=== PATIENT | female | born 1945 | race Caucasian/White ===

== ENCOUNTER → 2023-03-27 15:30 | Outpatient (REF) | payer MEDICARE, OTHER, SELFPAY | LOC: WDC 15:30 | PROVIDERS: ATTENDING PHYSICIAN Internal Medicine | DX: Z12.31 Encounter for screening mammogram for malignant neoplasm of breast (principal) | CPT/HCPCS: 77063; 77067 ==

== ENCOUNTER → 2023-04-11 13:18 | Outpatient (REF) | payer MEDICARE, OTHER, SELFPAY ==
[2023-04-11 15:02] LABS: PT 48.8 Sec (11.4-14.6)
== END ==
LOC: OLABWIL 13:18
PROVIDERS: ATTENDING PHYSICIAN Internal Medicine
DX: Z79.01 Long term (current) use of anticoagulants (principal)
CPT/HCPCS: 36415; 85610

== ENCOUNTER → 2023-04-25 14:24 | Outpatient (REF) | payer MEDICARE, OTHER, SELFPAY | LOC: RAD 14:24 | PROVIDERS: ATTENDING PHYSICIAN Nurse Practitioner Gerontology; FAMILY PHYSICIAN Internal Medicine | DX: H53.9 Unspecified visual disturbance (principal); H53.129 Transient visual loss, unspecified eye; I34.0 Nonrheumatic mitral (valve) insufficiency | CPT/HCPCS: 93880 ==

== ENCOUNTER → 2023-05-05 13:41 | Outpatient (REF) | payer MEDICARE, OTHER, SELFPAY | LOC: RAD 13:41 | PROVIDERS: ATTENDING PHYSICIAN Nurse Practitioner Family | DX: M25.511 Pain in right shoulder (principal); M25.552 Pain in left hip; M67.952 Unspecified disorder of synovium and tendon, left thigh | CPT/HCPCS: 72110; 73030; 73502 ==

== ENCOUNTER 2023-05-10 13:12 | Outpatient (RCR) | payer MEDICARE, OTHER, SELFPAY | END 2023-05-10 23:59 | disposition home or self-care (01) | LOC: RPT 13:12 | PROVIDERS: ATTENDING PHYSICIAN Orthopaedic Surgery; FAMILY PHYSICIAN Internal Medicine | DX: M70.62 Trochanteric bursitis, left hip (principal); S72.002D Fracture of unspecified part of neck of left femur, subsequent encounter for closed fracture with routine healing; Z73.6 Limitation of activities due to disability; R26.89 Other abnormalities of gait and mobility | CPT/HCPCS: 97010; 97110; 97140; 97162 ==

== ENCOUNTER → 2023-05-26 13:19 | Outpatient (REF) | payer MEDICARE, OTHER, SELFPAY | LOC: PAVMRI 13:19 | PROVIDERS: ATTENDING PHYSICIAN Orthopaedic Surgery; FAMILY PHYSICIAN Internal Medicine | DX: M76.892 Other specified enthesopathies of left lower limb, excluding foot (principal); M25.552 Pain in left hip | CPT/HCPCS: 73721 ==

== ENCOUNTER → 2023-06-08 19:00 | Outpatient (REF) | payer MEDICARE, OTHER, SELFPAY | LOC: MRI 3T 19:00 | PROVIDERS: ATTENDING PHYSICIAN Nurse Practitioner Family; FAMILY PHYSICIAN Internal Medicine | DX: G25.0 Essential tremor (principal) | CPT/HCPCS: 70553; A9575 ==

== ENCOUNTER 2023-06-28 22:29 | Inpatient (IN) | payer MEDICARE, OTHER, SELFPAY ==
[2023-06-28] VITALS (11 sets, daily range): BP systolic 103–151; BP diastolic 51–99; PULSE 68–84; BMI 30.7; BMI 30.2
[2023-06-28 18:40] LABS: % Basophils 0.7 % (0-2); % Immature Granulocytes 2.2 % (0-0.5); % Monocytes 12.8 % (1.7-9.3); % Neutrophils 66.3 % (42.2-75.2); Absolute Immature Granulocytes 0.1 10^3/uL (0-0.05); Absolute Lymphocytes 1.1 10^3/uL (1.2-3.4); Absolute Monocytes 0.8 10^3/uL (0.1-0.6); Absolute Neutrophils 3.9 10^3/uL (1.4-6.5); Hematocrit 40.3 % (37.0-47.0); Hemoglobin 14.7 g/dL (12.0-16.0); Mean Corp Hgb Conc. 36.5 g/dL (33.0-37.0); Mean Corpuscular Hgb 31.6 pg (27.0-31.0); Mean Corpuscular Volume 86.7 fL (81.0-99.0); Mean Platelet Volume 9.3 fL (7.4-10.4); Nucleated Red Blood Cells % 0 %; Platelet Count 212 10^3/uL (130-400); Red Blood Cell Count 4.65 10^6/uL (4.20-5.40); Red Cell Dist. Width 13.5 % (11.5-14.5); White Blood Cell Count 5.9 10^3/uL (4.8-10.8)
[2023-06-28 18:52] LABS: ALT (SGPT) 41 U/L (0-35); AST (SGOT) 40 U/L (14-36); Albumin 3.8 g/dl (3.5-5.0); Alkaline Phosphatase 81 U/L (38-126); Blood Urea Nitrogen 28 mg/dl (7-17); Carbon Dioxide 28 mmol/L (22-30); Chloride 97 mmol/L (98-107); Estimated Creatinine Clearance 39 ml/min; Glucose 121 mg/dl (70-99); Potassium 3.1 mmol/L (3.5-5.1); Sodium 129 mmol/L (135-145); Total Protein 6.3 g/dl (6.3-8.2); eGFR 46.05
[2023-06-28 19:04] LABS: Troponin I < 0.012 ng/ml
--- NOTE | 2023-06-28 19:05 | ED.GENMED ---
History of Present Illness
General
Chief Complaint: Chest Pain
Source: patient, records and family
Exam Limitations: none
Time Seen by Provider: 06/28/23 18:24
Nursing documentation reviewed up to this point in time: agreed with
Travel History
Have you had any contact with someone who has COVID-19?: No
Do you have any symptoms of coronavirus? Fever > 100 degrees, chills, cough, shortness of breath, sore throat, loss of taste or smell, muscle aches, or headache?: No
History of Present Illness
History of Present Illness:
78 female history of PAF on Eliquis, had an episode of fast heart rates, felt weak dizzy, took some extra propranolol had some water then developed chest pain similar but much less severe to when she had rapid A-fib positive troponin earlier in the
year treated [facility] ultimately had a cardiac cath here with no coronary artery disease
Patient also concerned about her chronic issues she has been dealing with for the past months
She is having dizziness confusion forgetfulness apparently had an MRI that was abnormal, she has been looking into talking to a neurosurgeon has yet to see a neurologist, continues to be on a blood thinner, she also has urinary incontinence, wearing
depends like garments
Past History
Past History
ED Past Medical History: Arrthythmia, HTN, Hypercholesterolemia, Valvular disease, Other (VTE, Jean-Claude blee and left prox humerus fx 04/2020), Other (Embolus, mild valvular heart disease, arthritis) and Other (Mild mitral regurgitation, thyroid cancer
is status post thyroidectomy, hypertension, IBS, GERD, hypercoagulable state); Negative CAD
ED Past Surgical History: Other (thyroid)
Social History
Tobacco: Non-smoker
Alcohol: Former
Drug: None
Employment: Retired
Family History
Family History: Other (Her daughter had a pulmonary and was on control there's also atrial fibrillation multi-infarct dementia and her family)
Review of Systems
Review of Systems
All Other Systems: ROS reviewed and negative except as documented in HPI and ROS
Constitutional: Reports fatigue; Denies fever
EENT: Reports no symptoms
Cardiac: Reports chest pain and palpitations
ABD/GI: Reports no symptoms
: Reports no symptoms
Neurological: Reports dizzy and weakness
Hematologic/Lymphatic: Reports bruising
Phy Exam
Physical Exam
Physical Exam:
Physical Exam
General: no apparent distress, not acutely ill
Neck: No jaundice
Heart: Regular
Lungs: no acute respiratory distress. clear bilaterally
Abdomen: Nontender
Neuro: alert and oriented. no focal neurological deficits
Skin: no rash
Psychiatric: well kept. interactive and cooperative
Extremities: no edema.
Scores
Heart Score for Chest Pain Patients
STEMI patient?: No
History: Moderately Suspicious
ECG: Normal
Age: </= 45 years
Risk Factors: No Risk Factors
Troponin: </= Normal Limit
Heart Score for Chest Pain Patients: 1
Heart Score Risk: 2.5% MACE over next 6 weeks
Course
Orders/Labs/Results
Orders:
Orders
06/28/23 18:17
Electrocardiogram (*1) Urgent
Reason for Study: Chest Pain
EKG- Treatment ONCE
06/28/23 18:33
Complete Blood Count/With Diff Urgent
Comprehensive Metabolic Panel Urgent
Magnesium Urgent
Comment: ADD ON
Troponin I Urgent
06/28/23 18:55
0.9% Sodium Chloride 1000 ml [Nss] 1,000 ml IV BOLUS
Potassium Chloride [KCl] 40 meq PO NOW STA
06/28/23 18:56
Add On- LAB Urgent
Tests Added?: magnesium
CT Head W/o Iv Contrast Urgent
Comment:
Reason For Exam: forgetfull ness
Orthostatic VS- Treatment ONCE
05/08/24 20:00
Osmolality, Random Urine Urgent
Date Specimen was Collected: 06/28/23
Time Specimen was Collected: 19:59
Comment: ADD ON
Urinalysis Reflex To Culture Urgent
Date Specimen was Collected: 06/28/23
Time Specimen was Collected: 19:59
Urine Microscopic Reflex Cult Urgent
Urine Sodium Urgent
Date Specimen was Collected: 06/28/23
Time Specimen was Collected: 19:59
Comment: ADD ON
Urine Culture Urgent
DOMENIC Source: U
Specimen Description:
Date Specimen was Collected: 06/28/23
Time Specimen was Collected: 19:59
06/28/23 20:58
Magnesium Oxide 500 mg PO NOW STA
06/28/23 21:14
Add On- LAB Urgent
Tests Added?: Urine sodium, Urine osm
Abnormal Lab Results
06/28/23 06/28/23
18:33 20:00
MCH 31.6 H pg
(27.0-31.0)
Abs Immat Gran (auto) 0.1 H 10^3/uL
(0-0.05)
Absolute Lymphs (auto) 1.1 L 10^3/uL
(1.2-3.4)
Absolute Monos (auto) 0.8 H 10^3/uL
(0.1-0.6)
Immature Gran % 2.2 H %
(0-0.5)
Lymphocytes % 18.0 L %
(20.5-51.1)
Monocytes % 12.8 H %
(1.7-9.3)
Sodium 129 L mmol/L
(135-145)
Potassium 3.1 L mmol/L
(3.5-5.1)
Chloride 97 L mmol/L
(98-107)
BUN 28 H mg/dl
(7-17)
Creatinine 1.2 H mg/dL
(0.6-1.0)
Glucose 121 H mg/dl
(70-99)
Calcium 13.0 H mg/dl
(8.4-10.2)
Magnesium 1.5 L mg/dl
(1.6-2.3)
AST 40 H U/L
(14-36)
ALT 41 H U/L
(0-35)
Urine Bilirubin 1+ A
(Negative)
Leukocyte Esterase Rfl 1+ A
(Negative)
Urine WBC (Reflex) 11-15 A /HPF
(0-5)
06/28/23 18:33
06/28/23 18:33
Vital Signs
Initial and Last Documented VS:
Initial Vital Signs
Pulse Resp
93 20
06/28/23 18:13 06/28/23 18:13
Last Documented Vital Signs
Temp Pulse Resp BP Pulse Ox
98.2 F 68 21 107/66 96
06/28/23 18:16 06/28/23 20:00 06/28/23 20:00 06/28/23 20:00 06/28/23 20:00
MDM/Problems Addressed
Differential Diagnosis Includes:
SVT AF electrolyte abnormality dehydration intracerebral hemorrhage orthostasis
MDM/Problems Addressed:
Dizziness rapid heart rate chest pain
Chronic conditions affecting care:
Abnormal MRI
Chronic conditions affecting care: Arrhythmia
Acute Exacerbation and/or Progression of Chronic Illness:
Abnormal MRI
Acute Exacerbation and/or Progression of Chronic Illness: Arrhythmia
*Critical Care Note
Total Time (30-74mins, 75-104mins- exclusive of procedures): 12
Update Note
Update Note:
Update labs are noted we will start on saline, replete potassium check orthostatics, CT of the head reviewed, she has a appointment with her PCP tomorrow encouraged her to keep this to discuss her symptoms possible need for outpatient specialty
consultation
Update calcium is elevated with normal albumin mag is s low creatinine is message sent to on-call hospitalist and PCP
ED Attending Note
-
Portions of this chart may have been created with voice recognition software.� Occasional wrong word or��sound alike� substitutions may have occurred due to the inherent limitations of voice recognition software.
Discharge Plan
Departure
Patient Disposition: Admit
Date of Disposition: 06/28/23
Time of Disposition: 21:16
Admit to: Med/Surg
Presentation/result/management discussed w/ accepting MD/DO: Hospitalist
Patient with high blood pressure during this ER visit?: No
Condition: Fair
Discharge Problem:
Hypercalcemia, Hyponatremia, Hypomagnesemia
Prescriptions:
No Action
fluoxetine 20 MG capsule
20 mg PO DAILY
levothyroxine 125 MCG tablet
0.125 mcg PO DAILY
vitamin B complex 1 TAB tablet
1 tab PO DAILY
lorazepam 1 MG tablet
1 mg PO HS
Melatonin
10 mg PO HS PRN (Reason: sleep)
Nyquil
1 dose PO PRN PRN (Reason: sleep & congestion)
acetaminophen [Tylenol Extra Strength] 500 MG tablet
500 mg PO DAILY
cholecalciferol (vitamin D3) 1,000 UNITS tablet
5,000 units PO DAILY
spironolactone 25 MG tablet
25 mg PO DAILY Qty: 0 0RF
hydrochlorothiazide 25 MG tablet
25 mg PO DAILY Qty: 1 0RF
Rx Instructions:
resume 05/05 but continue to hold if systolic blood pressure <130
prednisone 5 MG tablet
2.5 mg PO BID
magnesium 200 MG tablet
400 mg PO DAILY
Biotin
5,000 mcg PO DAILY
bisacodyl [Dulcolax (bisacodyl)] 5 mg Tablet,Delayed Release (Dr/Ec)
5 mg PO DAILY
omeprazole 20 mg Tablet,Delayed Release (Dr/Ec)
20 mg PO DAILY
warfarin [Jantoven] 2.5 MG tablet
2.5 mg PO Q OTHER DAY Qty: 0 0RF
warfarin [Jantoven] 5 MG tablet
5 mg PO Q OTHER DAY Qty: 0 0RF
metoprolol succinate 50 mg Tablet Extended Release 24 Hr
50 mg PO DAILY Qty: 30 5RF
diltiazem HCl 120 mg Capsule,Extended Release 24 Hr
120 mg PO DAILY Qty: 30 5RF
metoprolol succinate 25 mg Tablet Extended Release 24 Hr
25 mg PO HS Qty: 30 5RF
Referrals:
Riley Omer DO [Family Provider] -
Interventions
Interventions:
*Risk Screen - Suicide Last Done: 06/28/23 18:16
*General Assessment Last Done: 06/28/23 18:16
*Neglect/Abuse Screening Last Done: 06/28/23 18:16
ED- Fall Risk Assessment Last Done: 06/28/23 20:07
*ED COVID-19 Vaccine History Last Done: 06/28/23 18:16
ED- Cardiac Assessment Last Done: 06/28/23 20:07
Discharge Date and Time
Print Language: GREENLANDIC
[2023-06-28 19:08] LABS: Magnesium 1.5 mg/dl (1.6-2.3)
[2023-06-28] MEDS: KCL 40 MEQ PO ×2 (19:11→23:09)
[2023-06-28] MEDS: NSS 1000 IV ×2 (19:11→23:10)
[2023-06-28 20:07] LABS: Urine Albumin Negative (Neg - Trace); Urine Bilirubin 1+ (Negative); Urine Character Clear (Clear); Urine Color Yellow; Urine Glucose Negative (Negative); Urine Ketone Negative (Negative); Urine Leukocyte 1+ (Negative); Urine Nitrite Negative (Negative); Urine Occult Blood Negative (Negative); Urine Specific Gravity 1.015 (<1.030); Urine Urobilinogen Negative (Neg - 1+)
[2023-06-28 20:13] LABS: Urine Red Blood Cell None Seen /HPF (0-2); Urine Squamous Cell >30 /LPF (Few)
[2023-06-28] MEDS: MAGNESIUM OXIDE 500 MG PO (21:15)
[2023-06-28 21:31] LABS: Osmolality Urine 458 mOsm/kg (300-900)
[2023-06-28 21:42] LABS: Urine Sodium 24 mmol/L (30-90)
--- NOTE | 2023-06-28 22:07 | HPS.HSE ---
Family Physician
-
Family Physician: Riley Omer
Chief Complaint
-
Weakness, confusion
History of Present Illness
Patient is a 78y F with PMH significant for paroxysmal A-Fib, hypothyroidism, PMR and hypertension who presents to ED complaining of weakness and confusion. Patient initially presented with complaints of dizziness and palpitations. She felt as
if she was in A-Fib - which she has had in the past. Patient took a dose of propranolol 20mg which she uses as a [id number]-pocket for chest pain or palpitations. Her symptoms improved.
Patient then reported to ED staff recent symptoms of dizziness, confusion, memory loss, weakness, etc.
She states that these symptoms have santos present for the past 2 weeks or so.
Patient states that she has been having issues since being diagnosed with A-Fib in 01/2023. She was hospitalized at [facility] at that time.
Patient notes that she was started on metoprolol but could not tolerate this as she had 'all of the side effects'.
She currently takes propranolol 'PRN' as noted above, but admits that this translates into daily use.
Patient had a cardiac cath in February that showed no evidence of obstructing coronary disease.
She had an MRI 06/08/23 which showed a chronic intraparenchymal hemorrhage in the monty as well as an enhancing right internal auditory canal lesion c/w Schwannoma.
On evaluation in the ED, patient is noted to have multiple lab abnormalities including hypercalcemia and hyponatremia.
Labs obtained from her PCP done in February show normal renal function, sodium and calcium levels at that time.
Medical History
Past Medical History
Past Medical History: Reports Other
Additional Past Medical History:
Hypertension
Paroxysmal Atrial Fibrillation
Polymyalgia Rheumatica
Fibromyalgia
Thyroid Cancer
Asthma
Melanoma
IBS
GERD
History of DVT
Spinal Stenosis
Anxiety / Depression
Intraparenchymal hemorrhage (chronic)
Right Internal Auditory Canal Schwannoma
Past Surgical History: Reports Other
Additional Past Surgical History:
T&A
Total Thyroidectomy
Right Ankle ORIF
Cholecystectomy
Left Hip ORIF
Right YURI
Melanoma Excision x 2
Social History
Tobacco: Former Smoker
Alcohol: Occasional
Drug: None
Family History
Family History: Not pertinent
Allergies / Home Medications
Allergies reflects when Allergies were last updated in [employer].
Home Medications with original date entered in [employer]
Allergy/Medication List:
Allergies
Allergy/AdvReac Type Severity Reaction Status Date / Time
amlodipine [From [facility]] Allergy pain and Verified 06/28/23 18:16
swelling
in the legs
epinephrine Allergy SVT Verified 06/28/23 18:16
metoprolol Allergy Unknown Verified 06/28/23 18:16
NSAIDS (Non-Steroidal Allergy chest pain Verified 06/28/23 18:16
Anti-Inflamma (see note)
oxycodone Allergy Itching Verified 06/28/23 18:16
Home Medications
Nyquil 1 dose PO HS 04/19/18
levothyroxine 125 mcg tablet 125 mcg PO DAILY 04/19/18
lorazepam 1 mg tablet 1 mg PO HS 04/19/18
vitamin B complex 1 tab PO DAILY 04/19/18
acetaminophen 500 mg tablet (Tylenol Extra Strength) 500 mg PO DAILY 04/26/18
cholecalciferol (vitamin D3) 25 mcg (1,000 unit) tablet 5,000 units PO DAILY 04/26/18
hydrochlorothiazide 25 mg tablet 25 mg PO DAILY ##1 05/03/18
spironolactone 25 mg tablet 25 mg PO DAILY ##0 05/03/18
biotin 5,000 mcg chewable tablet 5,000 mcg PO DAILY ##0 04/24/20
magnesium 200 mg tablet 400 mg PO HS 04/24/20
bisacodyl 5 mg tablet,delayed release (Dulcolax (bisacodyl)) 5 mg PO HS 03/03/23
omeprazole 20 mg tablet,delayed release 20 mg PO DAILY 03/03/23
apixaban 5 mg tablet (Eliquis) 5 mg PO BID 06/28/23
duloxetine 20 mg capsule,delayed release 20 mg PO .SEE BELOW 06/28/23
propranolol 20 mg tablet 20 mg PO DAILY PRN chest pain/tachycardia 06/28/23
Review of Systems
-
History Source: Patient
A 12 point ROS was completed and negative except as noted: Yes
Constitutional: Reports Weight Loss and Fatigue; Denies Fever or Chills
EENT: Denies Sore Throat
Respiratory: Denies Cough or Trouble Breathing
Cardiac: Reports Palpitations; Denies Chest Pain, Diaphoresis or Syncope
Abdomen/GI: Reports Anorexia; Denies Abdominal Pain, Nausea, Vomiting, Diarrhea or Bloody Stools
: Reports Other (Nocturia); Denies Dysuria, Frequency or Flank Pain
Musculoskeletal: Reports Joint Pain (L Hip Pain); Denies Edema
Neurological: Reports Dizzy and Other (Thick speech, memory loss, confusion.); Denies Headache, Weakness or Numbness
Physical Exam
Vital Signs
Vital Signs
Temp Pulse Resp BP Pulse Ox
98.2 F 68 21 107/66 96
06/28/23 18:16 06/28/23 20:00 06/28/23 20:00 06/28/23 20:00 06/28/23 20:00
Physical Exam
General: Other (78y F in no acute distress.)
HEENT: Moist mucous membranes and PERRLA
Respiratory: Clear; No Wheezes, Rales or Rhonchi
Cardiac: S1/S2, Regular Rhythm and Murmur (II/ RADHA)
GI: Soft, Non Tender, Non Distended and Normal Bowel Sounds
Musculoskeletal: No Clubbing, No Cyanosis and No Edema
Neuro: AO x 3 and Other (Mild loss of L nasolabial fold. No other noted focal deficits.)
Psych: No Anxious or Depressed
Laboratory Results
-
06/28/23 18:
06/28/23:
Laboratory Results
Total Bilirubin 1.0 mg/dl (0.2-1.3) 06/28/23 18:33
AST 40 U/L (14-36) H 06/28/23:
ALT 41 U/L (0-35) H 06/28/23 18:
Alkaline Phosphatase 81 U/L (38-126) 06/28/23:
Troponin I < 0.012 ng/ml 06/28/23:
Impression/Plan
-
A/P: Patient is a 78y F with PMH significant for A-Fib, HTN and hypothyroidism who presents to ED complaining of palpitations, dizziness and confusion.
Hypercalcemia
- Admit for further evaluation and treatment.
- Based on other labs, suspect that this is due to hypovolemia.
- IVFs overnight and repeat labs in the AM.
- Check iPTH and follow-up results.
- Some degree of confusion, dizziness, etc may be related to calcium abnormality.
- Follow for clinical improvement with correction.
- Consider pamidronate or similar if no improvement with IVFs.
Hyponatremia
- Suspect hypovolemic hyponatremia based on other labs (see above) and urine lytes.
- IVF replacement overnight.
- Hold thiazide diuretic.
- Follow for improvement in labs.
- Sodium levels typically on the lower side (129 - 135 over the past several labs).
Hypokalemia
Hypomagnesemia
- Replace potassium and magnesium.
- Repeat labs in the AM.
- Hold thiazide, spironolactone, etc.
Confusion / Dizziness
- ? related to electrolyte abnormalities as noted above.
- Follow for clinical improvement coincident with replacement / correction.
- Recent MRI (05/2023) with R Schwannoma and chronic IPH noted.
- Follow neuro exams and consider repeat imaging if any new / abrupt changes.
- PT / OT evaluations.
CKD III
- SCr = 1.2 today. Prior baseline appears to be 0.7 - though labs from PCP in February included SCr = 1.06.
- Follow for changes with IVFs, holding diuretics as noted above.
Paroxysmal Atrial Fibrillation
- Stable. Patient suspects A-Fib prior to presentation, but improved with propranolol.
- Monitor on telemetry.
- Not on any daily rate meds due to intolerance.
- Continue Eliquis for stroke risk reduction - see above re: IPH.
Hypothyroidism
- Continue current T4 supplementation. Update TFTs.
Anxiety / Depression
Fibromyalgia
PMR
- Patient was most recently on 2.5mg of prednisone daily but notes that she discontinued this altogether recently.
- Continue current med regimen including Cymbalta (started in April 2023).
- She states that this has made a significant improvement in her chronic pain.
DVT Prophylaxis
History of DVT
- Continue Eliquis
Code Status: Full
[2023-06-28] MEDS: MAGNESIUM SULFATE 50 IV (23:17)
--- NOTE | 2023-06-28 23:20 | PTCARENOTE ---
Received patient from the ED into room 2135. Ambulated to bed with stand by assistance, uses a walker. AAOx3 but forgetful. VSS. NS @100 ml/hr running through R hand IV. See Assessment. Patient resting comfortably in bed, call mata within reach,
safe environment maintained.
[2023-06-29] VITALS (9 sets, daily range): BP systolic 119–151; BP diastolic 54–79; PULSE 82–99; O2SAT 97
[2023-06-29] MEDS: SYNTHROID 125 MCG PO (05:18)
[2023-06-29] MEDS: TYLENOL 650 MG PO (05:18)
[2023-06-29 06:53] LABS: Hematocrit 36.5 % (37.0-47.0); Hemoglobin 12.7 g/dL (12.0-16.0); Mean Corp Hgb Conc. 34.8 g/dL (33.0-37.0); Mean Corpuscular Hgb 31.8 pg (27.0-31.0); Mean Corpuscular Volume 91.3 fL (81.0-99.0); Platelet Count 175 10^3/uL (130-400); Red Cell Dist. Width 13.5 % (11.5-14.5); White Blood Cell Count 4.7 10^3/uL (4.8-10.8)
[2023-06-29 07:22] LABS: Blood Urea Nitrogen 20 mg/dl (7-17); Calcium 11.7 mg/dl (8.4-10.2); Carbon Dioxide 23 mmol/L (22-30); Chloride 107 mmol/L (98-107); Estimated Creatinine Clearance 52 ml/min; Glucose 103 mg/dl (70-99); Magnesium 2.2 mg/dl (1.6-2.3); Phosphorus 3.3 mg/dl (2.5-4.5); Sodium 134 mmol/L (135-145); eGFR > 60.00
[2023-06-29 07:44] LABS: TSH Reflex To Free T4 0.27 uIU/ml (0.47-4.68)
[2023-06-29 08:12] LABS: Free T4 1.74 ng/dl (0.78-2.19)
[2023-06-29] MEDS: ELIQUIS 5 MG PO ×2 (08:52→20:19)
[2023-06-29] MEDS: CYMBALTA DELAYED RELEASE 20 MG PO (08:52)
--- NOTE | 2023-06-29 09:56 | W.PN.HOSP.TC ---
Addendum entered and electronically signed by Christian Ferrari MD 06/30/23 00:08:
Hypothyroidism- decrease levothyroxine due to decreased TSH
Leukopenia- unclear etiology repeat CBC in am
Addendum entered and electronically signed by Christian Ferrari MD 06/30/23 00:06:
Attending Addendum-
I saw and evaluated the patient. I reviewed the resident�s note and agree with findings and plan as documented in the resident�s note. Had episode of slurred speech lasted a few seconds after receieving cymbalta self resolved. states it happens
frequently with Cymbalta. currently no sxs. seen with daughter present. Full 12 point ROS reviewed and negative except as documented Exam: Vitals reviewed in chart GEN-NAD heart RRR lungs clear abd soft LE no edema Neuro- AAO x 3 no slurred speech
MS 5/5 sensation intact no cerebellar deficits CN 2-12 GI Plan:
Hypercalcemia
- resolving s/p IVF
- likely due to HCTZ and dehydration
- Check iPTH and follow-up results.
- repeat in am
Hypovolemic hyponatremia
- improved with IVF
- Hold thiazide diuretic.
- Follow for improvement in labs.
Hypokalemia
- resolved after repletion
Hypomagnesemia
-resolved
-Replete as warranted
-Repeat labs in the AM.
-Hold thiazide
Confusion / Dizziness / Slurred Speech
- related to Cymbalta - DC
- highly doubt TIA - recent MRI 06/07 reviewed
- Recent MRI (05/2023) with R Schwannoma and chronic IPH noted.
- Follow neuro exams and consider repeat imaging if any new / abrupt changes.
- PT / OT evaluations.
COLE on CKD III
-resolved with IVF
-Follow for changes with IVFs, holding diuretics as noted above.
Paroxysmal Atrial Fibrillation
-cont eliquis
-start CCB
HTN
- DC HCTZ
- DC spirinolactone
- start cardizem CD 120
Hypothyroidism
- Continue current T4 supplementation. Update TFTs.
Anxiety / Depression
- cont meds
- on chrnic daily ativan- consider taper to off as OP
Fibromyalgia
- med regimen including Cymbalta (started in April 2023).
- start lyrica DC cymbalta
PMR
- Patient was most recently on 2.5mg of prednisone daily but notes that she discontinued this altogether recently.
- may need to restart
- f/u Rheum as OP
DVT Prophylaxis- Eliquis
Code Status: Full
Dispo- DC home in am
Time spent coordinating care, review of plan of care with resident, review of records, med rec, consults, notes, labs, rads, d/w nursing daughter � 59 mins
Original Note:
Today's Communication/Plan
-
Restart spironolactone
reduce the dose of levothyroxine
Monitor labs in the a.m. Tomorrow
Add pregabalin.
Change of blood pressure medication in the a.m. tomorrow.
Assessment / Plan
Assessment / Plan
Assessment-
78 Y F with significant medical history of A-fib, chronic intraparenchymal hemorrhage, right schwannoma, prothrombin gene mutation, hypertension and hypothyroidism presents to the ER with chest pain, palpitations, dizziness and confusion.
Plan-
Slurred speech and blurring of vision
Mild loss of right-sided nasolabial fold.
PMHx significant for chronic intraparenchymal hemorrhage, right schwannoma, PE, prothrombin gene mutation, hypertension.
CT head 06/27-no acute intracranial abnormality noted.
Brain MRI -06/07-
1. SMALL CHRONIC INTRAPARENCHYMAL HEMORRHAGE in the HARMONY. Diagnostic possibilities are (1) a capillary telangiectasia or (2) cerebral venous cavernous malformation.
2. 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
3. Mild to moderate white matter leukoaraiosis in the frontal and parietal lobes.
4. Moderate diffuse cerebral and cerebellar volume loss.
Given this history, and self dosing of medications possibility of TIA or stroke less likely. Will observe her overnight, and consider reevaluating with a brain MRI if needed in the a.m. tomorrow.
Hypercalcemia
Secondary to dehydration versus vitamin D oversupplementation versus HCTZ use.
IV fluids given overnight, hypercalcemia improved.
iPTH results pending.
Confusion dizziness and chest pain resolved.
Follow-up serum calcium levels in the a.m. tomorrow.
Consider pamidronate or similar if no improvement with IVFs.
Hyperthyroidism
TSH at 0.27.
Plan to reduce the dose of levothyroxine to 100 mcg from tomorrow a.m.
Hyponatremia
Hypovolemic hyponatremia secondary to dehydration.
Serum sodium levels improved to 134 with IV fluids.
Thiazide diuretic on hold.
Her serum sodium levels are typically on the lower side in the past several labs. Follow-up with serum sodium in the a.m.
Hypokalemia
Resolved with potassium supplementation.
Hypomagnesemia
Resolved with potassium and magnesium supplementation.
Hypertension
Spironolactone resumed.
History of intolerance of many blood pressure medications in the past. Will review outpatient records and switch her to a new oral antihypertensive in the a.m. tomorrow.
Confusion / Dizziness
Resolved with IV fluids.
Recent MRI as above.
PT / OT evaluations.
CKD III
SCr = 0.9 today. Prior baseline appears to be 0.7 - though labs from PCP in February included SCr = 1.06.
Kidney function back to baseline.
Paroxysmal Atrial Fibrillation
Stable. Patient suspects A-Fib prior to presentation, but improved with propranolol.
Monitor on telemetry.
Not on any rate control due to medication intolerance. Anticoagulation with Eliquis.
Hypervitaminosis D
Patient reports to having about 10,000 units of vitamin D every day for an year.
Vitamin D levels at 87.
Moderation of vitamin D dosing.
Anxiety / Depression -continue duloxetine
Fibromyalgia
PMR
Patient reports to discontinuing prednisone 2.5 Mg twice daily by tapering it to OD for 1 week and discontinuing all of a sudden after taking it for years
Hold Cymbalta to assess improvement in slurring of speech and blurring of vision tomorrow
Add Lyrica twice daily
DVT Prophylaxis
Continue Eliquis
Code Status: Full
Anticipated Discharge: Within 24 hours
Subjective/Interval History
-
Date of Service: June 29, 2023
Today patient reports slurred speech and blurring of vision after 1 hour of taking Cymbalta. Detail history of slurred speech as follows-
Patient is close diagnosed with atrial fibrillation on of 2022.
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 Her pyriformis syndrome and pain partially resolved and she stopped pursuing further treatment. She also reports
to be having leg pain and muscle aches nonspecific for the last 2 months (PMHx of polymyalgia rheumatica, fibromyalgia) and states to be switched switched from Prozac to Cymbalta. She attributes her dizziness lightheadedness and muscle pains to
Cymbalta.
Also reports of urgent continence that started 2 months ago. Not on any medications for urge incontinence. Has severe constipation over the last 1 week. Used a cocktail of Dulcolax and MiraLAX and had 2 episodes of diarrhea. Yesterday she came
to the emergency room due to presence of chest pain. Over the last 1 week she feels weak and states 'all she wants to do is lying in the bed'.
Back pain (history of lumbar laminectomy in the past).
She also reports blurring of vision but denies any weakness, numbness, tingling, loss of consciousness episodes.
Objective Data
-
Labs:
Laboratory Results
06/29/23 06/29/23 06/29/23
00:04 06:14 06:14
WBC 4.7 L
Hgb 12.7
Hct 36.5 L
Plt Count 175
Sodium Cancelled 134 L
Potassium Cancelled
Chloride
Carbon Dioxide
BUN
Creatinine
Glucose
Calcium Cancelled
06/29/23 06/29/23 06/29/23
06:14 06:14 06:14
WBC
Hgb
Hct
Plt Count
Sodium
Potassium 4.0 D
Chloride Cancelled 107
Carbon Dioxide Cancelled 23
BUN Cancelled
Creatinine
Glucose
Calcium
06/29/23 06/29/23 06/29/23
06:14 06:14 06:14
WBC
Hgb
Hct
Plt Count
Sodium
Potassium
Chloride
Carbon Dioxide
BUN 20 H
Creatinine Cancelled 0.9
Glucose Cancelled 103 H
Calcium Cancelled
06/29/23
06:14
WBC
Hgb
Hct
Plt Count
Sodium
Potassium
Chloride
Carbon Dioxide
BUN
Creatinine
Glucose
Calcium 11.7 H
Vital Signs:
Vital Signs
Temp Pulse Resp BP Pulse Ox
98.3 F 74 16 132/54 97
06/29/23 07:45 06/29/23 07:45 06/29/23 07:45 06/29/23 07:45 06/29/23 07:45
I&O
06/28/23 06/29/23 06/30/23
06:59 06:59 06:59
Intake Total 480 / 480
Balance 480 / 480
Review of Systems
-
History Source: Patient
EENT: Reports Blurry Vision
Respiratory: Reports No Symptoms
Cardiac: Reports Palpitations
Abdomen/GI: Reports Constipated (cocktail of laxatives and diarrhoea)
Genitourinary: Reports Incontinence (urge)
Musculoskeletal: Reports Myalgias
Skin: Reports No Symptoms
Neuro: Reports Other (Slurred speech.)
Endocrine: Reports No Symptoms
Hematologic / Lymphatic: Reports No Symptoms
Allergy / Immunology: Reports No Symptoms
Physical Exam
-
General: Well Developed and Well Nourished
HEENT: Normocephalic and Atraumatic
Respiratory: Clear to Auscultation (No wheezes rales rhonchi.)
Cardiac: S1/S2, Irregular Rhythm and Murmur (Grade 2 systolic murmur present)
GI: Soft, Nontender and Nondistended
Musculoskeletal: No Clubbing, No Cyanosis and No Edema
Neuro: AO x 3, Slurred Speech (Was able to make conversation. St[place] speech.) and Other (Mild flattening of nasolabial fold noted on the right side, strength 5 x 5, sensation to touch all over the back body intact, gait wobbly (walks with
walker), cranial nerve examination intact.)
Psych: Calm
Data Reviewed
-
CT Scan: Image personally visualized and interpreted and Report Reviewed by me
Ultrasound: Report Reviewed by me
MRI: Report Reviewed by me
Medical Tests (Nuc Med, Echo etc): Report Reviewed by me
Labs: Labs Reviewed by me
[2023-06-29] MEDS: NSS 1000 IV ×2 (11:24→18:44)
[2023-06-29 12:17] LABS: Vitamin D, 25-OH*** 82.2 ng/mL (30-80)
--- NOTE | 2023-06-29 14:22 | CM ---
Nice visit with Lakshmi in her hospital room. Her daughter came in shortly after we had started speaking. Lakshmi advised that she lives in her own apartment at [address] in [place] where she has a great social life and many, many friends.
Lakshmi was not feeling well at dinner on 06/28/2023 and was brought to via ambulance. She is feeling much better today and is anxious to return home to her friends. Her daughter has advised her to relax and wait for the doctors to determine when
she is ready to return to [place].
Care Management will follow for coordination of services if identified; none at present. Lakshmi's daughter will provide transportation home at discharge.
--- NOTE | 2023-06-29 17:32 | PTCARENOTE ---
Pt stated during shift that she felt her speech 'was off' as well as feeling her vision has changed slightly. NIH done and Pt scored a 1. The Pt stated that she gets this way every time she takes Cymbalta. Resident doctors who are assigned to Pt
notified and came on the floor to assess Pt. No new orders given. NIH done again during shift with a score of 0. Pt states feeling better and that when she speaks it sounds to be at her baseline.
[2023-06-29] MEDS: ALDACTONE 25 MG PO (18:44)
[2023-06-29] MEDS: INDERAL 20 MG PO (20:19)
[2023-06-29] MEDS: LYRICA 75 MG PO (20:19)
[2023-06-29] MEDS: ATIVAN 1 MG PO (22:25)
[2023-06-30 03:27] VITALS: BP 141/80
[2023-06-30] MEDS: NSS 1000 IV (03:37)
[2023-06-30 05:44] LABS: % Basophils 0.5 % (0-2); % Eosinophils 0.3 % (0-6); % Immature Granulocytes 2.5 % (0-0.5); % Lymphocytes 24.5 % (20.5-51.1); % Monocytes 13.5 % (1.7-9.3); % Neutrophils 58.7 % (42.2-75.2); Absolute Immature Granulocytes 0.1 10^3/uL (0-0.05); Absolute Monocytes 0.5 10^3/uL (0.1-0.6); Absolute Neutrophils 2.4 10^3/uL (1.4-6.5); Hematocrit 34.2 % (37.0-47.0); Hemoglobin 11.9 g/dL (12.0-16.0); Mean Corp Hgb Conc. 34.8 g/dL (33.0-37.0); Mean Corpuscular Hgb 31.3 pg (27.0-31.0); Mean Platelet Volume 9.7 fL (7.4-10.4); Nucleated Red Blood Cells % 0 %; Platelet Count 168 10^3/uL (130-400); Red Cell Dist. Width 13.8 % (11.5-14.5)
[2023-06-30 05:56] VITALS: BMI 30.7
[2023-06-30 06:09] LABS: ALT (SGPT) 25 U/L (0-35); AST (SGOT) 34 U/L (14-36); Albumin 2.8 g/dl (3.5-5.0); Alkaline Phosphatase 51 U/L (38-126); Blood Urea Nitrogen 16 mg/dl (7-17); Calcium 10.6 mg/dl (8.4-10.2); Carbon Dioxide 22 mmol/L (22-30); Chloride 109 mmol/L (98-107); Estimated Creatinine Clearance 67 ml/min; Glucose 100 mg/dl (70-99); Magnesium 1.5 mg/dl (1.6-2.3); Phosphorus 3.8 mg/dl (2.5-4.5); Potassium 3.4 mmol/L (3.5-5.1); Sodium 136 mmol/L (135-145); Total Bilirubin 0.6 mg/dl (0.2-1.3); eGFR > 60.00
[2023-06-30] MEDS: SYNTHROID 100 MCG PO (06:29)
[2023-06-30 07:40] VITALS: BP 127/80
[2023-06-30] MEDS: ELIQUIS 5 MG PO (08:28)
[2023-06-30] MEDS: MAGNESIUM OXIDE 500 MG PO (08:28)
[2023-06-30] MEDS: LYRICA PO (08:32)
--- NOTE | 2023-06-30 09:43 | W.PN.HOSP.TC ---
Addendum entered and electronically signed by Christian Ferrari MD 06/30/23 23:18:
Attending Addendum-
I saw and evaluated the patient. I reviewed the resident�s note and agree with findings and plan as documented in the resident�s note. 'i dont like that lyrica'. currently no sxs. Full 12 point ROS reviewed and negative except as documented Exam:
Vitals reviewed in chart GEN-NAD heart RRR lungs clear abd soft LE no edema Neuro- AAO x 3 no slurred speech MS 5/5 sensation intact no cerebellar deficits CN 2-12 GI Plan:
Hypercalcemia
- resolving s/p IVF
- likely due to HCTZ and dehydration
- repeat as OP
- DC HCTZ
Hypovolemic hyponatremia
- improved with IVF
- Hold thiazide diuretic.
- Follow for improvement in labs.
Hypokalemia
- replete
Hypomagnesemia
-Replete
-Repeat labs as OP
-DC thiazide
Confusion / Dizziness / Slurred Speech
- related to Cymbalta and orthostatic hypotension
- bolus prior to DC
- highly doubt TIA - recent MRI 06/07 reviewed
- Recent MRI (05/2023) with R Schwannoma and chronic IPH noted.
- Follow neuro exams and consider repeat imaging if any new / abrupt changes.
COLE on CKD III
-resolved with IVF
Paroxysmal Atrial Fibrillation
-cont eliquis
-CCB- declined
HTN
- DC HCTZ
- DC spirinolactone
- cardizem CD 120- declined
Hypothyroidism
- low tsh decrease levothyroxine
Anxiety / Depression
- cont meds
- on chrnic daily ativan- consider taper to off as OP
Fibromyalgia
- med regimen including Cymbalta (started in April 2023).
- refusing lyrica DC cymbalta
PMR
- Patient was most recently on 2.5mg of prednisone daily but notes that she discontinued this altogether recently.
- may need to restart
- f/u Rheum as OP
DVT Prophylaxis- Eliquis
Code Status: Full
Dispo- DC back [place]
Time spent coordinating care, review of plan of care with resident, dc planning, transiton of care, review of records, med rec, consults, notes, labs, rads, d/w nursing � 35 mins
Original Note:
Today's Communication/Plan
-
IVF bolus 250.
Stop spironolactone.
Reduce levothyroxine dose to 100
Reduce vitamin D intake. Pending iPTH levels.
Plan for discharge.
Assessment / Plan
Assessment / Plan
Assessment-
78 Y F with significant medical history of A-fib, chronic intraparenchymal hemorrhage, right schwannoma, prothrombin gene mutation, hypertension and hypothyroidism presents to the ER with chest pain, palpitations, dizziness and confusion.
Plan-
Orthostatic hypotension-
Secondary to hypovolemic status and resuming spironolactone.
IV fluids bolus- 250ml given.
Follow-up with primary care on outpatient basis.
Slurred speech and blurring of vision
Mild loss of right-sided nasolabial fold.
PMHx significant for chronic intraparenchymal hemorrhage, right schwannoma, PE, prothrombin gene mutation, hypertension.
CT head 06/27-no acute intracranial abnormality noted.
Brain MRI -06/07-
1. SMALL CHRONIC INTRAPARENCHYMAL HEMORRHAGE in the HARMONY. Diagnostic possibilities are (1) a capillary telangiectasia or (2) cerebral venous cavernous malformation.
2. 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
3. Mild to moderate white matter leukoaraiosis in the frontal and parietal lobes.
4. Moderate diffuse cerebral and cerebellar volume loss.
Given this history, and self dosing of medications possibility of TIA or stroke less likely. Will observe her overnight, and consider reevaluating with a brain MRI if needed in the a.m. tomorrow.
Hypercalcemia
Secondary to dehydration versus vitamin D oversupplementation versus HCTZ use.
IV fluids given overnight, hypercalcemia improved.
iPTH results pending.
Confusion dizziness and chest pain resolved.
Follow-up serum calcium levels in the a.m. tomorrow.
Consider pamidronate or similar if no improvement with IVFs.
Hyperthyroidism
TSH at 0.27.
levothyroxine dosed to 100 mcg from tomorrow a.m.
Hyponatremia
Resolved.
Thiazide diuretic on hold.
Her serum sodium levels are typically on the lower side in the past several labs.
Hypokalemia
Resolved with potassium supplementation.
Hypomagnesemia
Oral magnesium supplementation given.
Hypertension
Spironolactone resumed.
The only option of ARB's discussed with the patient. However patient refusing any antihypertensive medications at this point. Advised her to discuss with primary care following discharge.
Confusion / Dizziness
Resolved with IV fluids.
Recent MRI as above.
PT / OT evaluations.
CKD III
SCr = 0.9 today. Prior baseline appears to be 0.7 - though labs from PCP in February included SCr = 1.06.
Kidney function back to baseline.
Paroxysmal Atrial Fibrillation
Stable. Patient suspects A-Fib prior to presentation, but improved with propranolol.
Monitor on telemetry.
Not on any rate control due to medication intolerance. Anticoagulation with Eliquis.
Hypervitaminosis D
Patient reports to having about 10,000 units of vitamin D every day for an year.
Vitamin D levels at 87.
Moderation of vitamin D dosing.
Anxiety / Depression -continue duloxetine
Fibromyalgia
PMR
Patient reports to discontinuing prednisone 2.5 Mg twice daily by tapering it to OD for 1 week and discontinuing all of a sudden after taking it for years
Hold Cymbalta to assess improvement in slurring of speech and blurring of vision tomorrow
Add Lyrica twice daily
DVT Prophylaxis
Continue Eliquis
Code Status: Full
Anticipated Discharge: Today
Subjective/Interval History
-
Date of Service: June 30, 2023
Patient reports no symptoms overnight, currently she has mild cough. States she could not stand Lyrica. She has been previously prescribed diltiazem and reported sulfa allergy.
Performed medication review on her outpatient records-she has tried FELICIANO inhibitor's with cough but blood pressure, has tried calcium channel blockers with pedal edema, metoprolol with more self-reported side effects.
Objective Data
-
Labs:
Laboratory Results
06/30/23
04:24
WBC 4.0 L
Hgb 11.9 L
Hct 34.2 L
Plt Count 168
Sodium 136
Potassium 3.4 L
Chloride 109 H
Carbon Dioxide 22
BUN 16
Creatinine 0.7
Glucose 100 H
Calcium 10.6 H
Total Bilirubin 0.6
AST 34
ALT 25
Alkaline Phosphatase 51
Vital Signs:
Vital Signs
Temp Pulse Resp BP Pulse Ox
97.8 F 79 16 127/80 94
06/30/23 07:40 06/30/23 08:36 06/30/23 07:40 06/30/23 08:36 06/30/23 07:40
I&O
06/29/23 06/30/23 07/01/23
06:59 06:59 06:59
Intake Total 480 / 480 2250 / 2250
Output Total 900 / 900
Balance 480 / 480 1350 / 1350
Review of Systems
-
History Source: Patient
Constitutional: Reports No Symptoms
EENT: Reports No Symptoms Reported
Respiratory: Reports No Symptoms
Cardiac: Reports No Symptoms
Abdomen/GI: Reports No Symptoms
Genitourinary: Reports No Symptoms
Musculoskeletal: Reports No Symptoms
Skin: Reports No Symptoms
Neuro: Reports No Symptoms
Endocrine: Reports No Symptoms
Hematologic / Lymphatic: Reports No Symptoms
Allergy / Immunology: Reports No Symptoms
Physical Exam
-
General: Well Developed, Well Nourished and No Apparent Distress
HEENT: Normocephalic, Atraumatic and Moist Mucous Membranes
Respiratory: Clear to Auscultation (No wheezes rales and rhonchi.)
Cardiac: Regular Rhythm, S1/S2 and Irregular Rhythm
GI: Soft, Nontender, Nondistended and Normal Bowel Sounds
Musculoskeletal: No Clubbing, No Cyanosis and No Edema
Skin: Warm
Neuro: AO x 3 and Other (MS 5/5 sensation intact no cerebellar deficits CN 2-12)
Psych: Calm
[2023-06-30 11:55] VITALS: BP 127/75; BP 142/83; BP 95/73; PULSE 104; PULSE 86; PULSE 88
--- NOTE | 2023-06-30 14:00 | W.DCSUMMARY ---
Documented by User: Zoey Loaiza MD, Resident 06/30/23 18:29
Discharge Summary
Discharge Data
Date of Admission: 06/28/23
Date of Discharge: 06/30/23
-
Pending Results: Yes
Additional Pending Results:
iPTH levels
Hospital Course
Assessment-
78 Y F with significant medical history of A-fib, chronic intraparenchymal hemorrhage, right schwannoma, prothrombin gene mutation, hypertension and hypothyroidism presents to the ER with chest pain, palpitations, dizziness and confusion.
Hospital course-
During the 2 day hospital course patient was diagnosed with hypercalcemia, hyponatremia, hypokalemia, hypomagnesemia, hyperthyroidism. She attributes her dizziness, palpitations, tremors to Cymbalta use for fibromyalgia. Patient was given 3 days
of IV fluids, and all her medication regimens were held. Hypokalemia and hypomagnesemia were corrected. Her levothyroxine dose was cut to mcg. Patient refuses to take diltiazem or try any new antihypertensive medications. However resuming
spironolactone for her hypertension caused her orthostatic vitals to turn positive. Hence we discharged her with pause on the spironolactone as well.
Patient is also diagnosed with hypervitaminosis D and is advised to cut back on her vitamin D supplementation.
-Hypercalcemia, hyponatremia, resolved with. Patient was sent home with her oral magnesium and propranolol and reduce the dose of levothyroxine.
Advised her to follow-up with her primary care in less than 1 week for hypertension.
Discharge Plan
-
Patient Disposition: Home (Routine Discharge)
Discharge Diagnosis/Procedures: Dehydration, and medication adverse effects
Diet: 2 Gram Sodium
Activity: No restrictions
Driving Restrictions: As prior to admission
Bathing Restrictions: None
Blood Work: Pending iPTH
Activity Restrictions/Additional Instructions:
Fall precautions.
Moderation of Vitamin D supplementation
Instructions: Preventing falls in adults, Chest Pain PCP Follow Up, BLOOD PRESSURE
Referrals:
Riley Omer, DO [Family Provider] -
Prescriptions:
New
levothyroxine 100 mcg Tablet
100 mcg PO DAILY @ 0600 30 Days Qty: 30 0RF
Continued
vitamin B complex 1 TAB tablet
1 tab PO DAILY
lorazepam 1 MG tablet
1 mg PO HS
Patient Comments:
06/28/2023: last filled 06/10/23, 90 tabs for 30 days from [facility]#[id number]
Nyquil
1 dose PO HS
acetaminophen [Tylenol Extra Strength] 500 MG tablet
500 mg PO DAILY
magnesium 200 MG tablet
400 mg PO HS
biotin 5,000 mcg Tablet,Chewable
5,000 mcg PO DAILY Qty: 0
bisacodyl [Dulcolax (bisacodyl)] 5 mg Tablet,Delayed Release (Dr/Ec)
5 mg PO HS
propranolol 20 mg Tablet
20 mg PO DAILY PRN (Reason: chest pain/tachycardia)
Eliquis 5 mg tablet
5 mg PO BID
Discontinued
levothyroxine 125 MCG tablet
125 mcg PO DAILY
cholecalciferol (vitamin D3) 1,000 UNITS tablet
5,000 units PO DAILY
spironolactone 25 MG tablet
25 mg PO DAILY Qty: 0 0RF
hydrochlorothiazide 25 MG tablet
25 mg PO DAILY Qty: 1 0RF
Rx Instructions:
resume 05/05 but continue to hold if systolic blood pressure <130
omeprazole 20 mg Tablet,Delayed Release (Dr/Ec)
20 mg PO DAILY
duloxetine 20 mg capsule,delayed release(DR/EC)
20 mg PO .SEE BELOW
Patient Comments:
06/28/2023: Prescribed as 40mg Daily. Pt states she is playing with the dose cause it makes her feel weird, so she goes between daily to BID
Discharge Orders:
Discharge Patient (As Directed); Ordered 06/30/23
Ordered By: Zoey Loaiza
Discharge Date and Time
Discharge Date/Time: 06/30/23 16:25
Print Language: WOLOF

Documented by User: Christian Ferrari MD 06/30/23 23:13
Discharge Summary
Discharge Data
Date of Admission: 06/28/23
Date of Discharge: 06/30/23
Discharge Plan
-
Patient Disposition: Home (Routine Discharge)
Discharge Diagnosis/Procedures: Dehydration, and medication adverse effects
Diet: 2 Gram Sodium
Activity: No restrictions
Driving Restrictions: As prior to admission
Bathing Restrictions: None
Blood Work: Pending iPTH
Activity Restrictions/Additional Instructions:
Fall precautions.
Moderation of Vitamin D supplementation
Instructions: Preventing falls in adults, Chest Pain PCP Follow Up, BLOOD PRESSURE
Referrals:
Riley Omer DO [Family Provider] -
Prescriptions:
New
levothyroxine 100 mcg Tablet
100 mcg PO DAILY @ 0600 30 Days Qty: 30 0RF
Continued
vitamin B complex 1 TAB tablet
1 tab PO DAILY
lorazepam 1 MG tablet
1 mg PO HS
Patient Comments:
06/28/2023: last filled 06/10/23, 90 tabs for 30 days from [facility]#[id number]
Nyquil
1 dose PO HS
acetaminophen [Tylenol Extra Strength] 500 MG tablet
500 mg PO DAILY
magnesium 200 MG tablet
400 mg PO HS
biotin 5,000 mcg Tablet,Chewable
5,000 mcg PO DAILY Qty: 0
bisacodyl [Dulcolax (bisacodyl)] 5 mg Tablet,Delayed Release (Dr/Ec)
5 mg PO HS
propranolol 20 mg Tablet
20 mg PO DAILY PRN (Reason: chest pain/tachycardia)
Eliquis 5 mg tablet
5 mg PO BID
Discontinued
levothyroxine 125 MCG tablet
125 mcg PO DAILY
cholecalciferol (vitamin D3) 1,000 UNITS tablet
5,000 units PO DAILY
spironolactone 25 MG tablet
25 mg PO DAILY Qty: 0 0RF
hydrochlorothiazide 25 MG tablet
25 mg PO DAILY Qty: 1 0RF
Rx Instructions:
resume 05/05 but continue to hold if systolic blood pressure <130
omeprazole 20 mg Tablet,Delayed Release (Dr/Ec)
20 mg PO DAILY
duloxetine 20 mg capsule,delayed release(DR/EC)
20 mg PO .SEE BELOW
Patient Comments:
06/28/2023: Prescribed as 40mg Daily. Pt states she is playing with the dose cause it makes her feel weird, so she goes between daily to BID
Discharge Orders:
Discharge Patient (As Directed); Ordered 06/30/23
Ordered By: Zoey Loaiza
Discharge Date and Time
Discharge Date/Time: 06/30/23 16:25
Print Language: WOLOF
--- NOTE | 2023-06-30 14:21 | CM ---
Reviewed the chart notes and spoke with the patient the bedside. Discussed with the patient possible need for VN. Patient declined. Patient's son-in-law will provide transportation home. CM continues to be available to patient/family and is
monitoring medical plan for needs at discharge.
Plan: Discharge to home today.
[2023-06-30] MEDS: NSS 250 IV (15:07)
[2023-06-30 15:58] VITALS: BP 129/71
[2023-07-01 18:12] LABS: Intact PTH < 3.4 pg/ml (13.6-85.8)
== END 2023-06-30 16:25 | disposition home or self-care (01) | DRG 640 ==
LOC: 2 NORTH 22:29
PROVIDERS: Student in an Organized Health Care Education/Training Program; ADMITTING PHYSICIAN Hospitalist; ATTENDING PHYSICIAN Family Medicine; EMERGENCY PHYSICIAN Emergency Medicine; FAMILY PHYSICIAN Internal Medicine
DX: E83.52 Hypercalcemia (principal); I61.9 Nontraumatic intracerebral hemorrhage, unspecified; E87.1 Hypo-osmolality and hyponatremia; F01.53 Vascular dementia, unspecified severity, with mood disturbance; N17.9 Acute kidney failure, unspecified; Z87.891 Personal history of nicotine dependence; E89.0 Postprocedural hypothyroidism; E87.6 Hypokalemia; E83.42 Hypomagnesemia; Z79.01 Long term (current) use of anticoagulants; I48.0 Paroxysmal atrial fibrillation; F32.A Depression, unspecified; M79.7 Fibromyalgia; I12.9 Hypertensive chronic kidney disease with stage 1 through stage 4 chronic kidney disease, or unspecified chronic kidney disease; N18.30 Chronic kidney disease, stage 3 unspecified; M35.3 Polymyalgia rheumatica
CPT/HCPCS: 70450; 80048; 80053; 81003; 81015; 82306; 83735; 83935; 83970; 84100; 84300; 84439; 84443; 84484; 85025; 85027; 87070; 87086; 93005; 96360; 97162; 97166; 99285

== ENCOUNTER → 2023-07-21 13:17 | Outpatient (REF) | payer MEDICARE, OTHER, SELFPAY ==
[2023-07-21 15:16] LABS: Blood Urea Nitrogen 22 mg/dl (7-17); Calcium 10.5 mg/dl (8.4-10.2); Carbon Dioxide 29 mmol/L (22-30); Chloride 101 mmol/L (98-107); Glucose 104 mg/dl (70-99); Potassium 4.3 mmol/L (3.5-5.1); Sodium 137 mmol/L (135-145); Uric Acid 7.5 mg/dl (2.5-6.2); eGFR > 60.00
[2023-07-21 15:33] LABS: TSH Reflex To Free T4 < 0.02 uIU/ml (0.47-4.68)
[2023-07-21 16:02] LABS: Free T4 1.99 ng/dl (0.78-2.19)
== END ==
LOC: REG 13:17
PROVIDERS: ATTENDING PHYSICIAN Internal Medicine
DX: E87.1 Hypo-osmolality and hyponatremia (principal); I10 Essential (primary) hypertension
CPT/HCPCS: 36415; 80048; 84439; 84443; 84550

== ENCOUNTER → 2023-08-31 10:23 | Outpatient (REF) | payer MEDICARE, OTHER, SELFPAY ==
[2023-08-31 11:51] LABS: Ionized Calcium 1.16 mMOL/L (1.15-1.33)
[2023-08-31 12:18] LABS: ALT (SGPT) 18 U/L (0-35); AST (SGOT) 26 U/L (14-36); Alkaline Phosphatase 81 U/L (38-126); Blood Urea Nitrogen 24 mg/dl (7-17); Calcium 9.4 mg/dl (8.4-10.2); Carbon Dioxide 25 mmol/L (22-30); Chloride 102 mmol/L (98-107); Glucose 86 mg/dl (70-99); Phosphorus 3.7 mg/dl (2.5-4.5); Sodium 137 mmol/L (135-145); Total Bilirubin 1.4 mg/dl (0.2-1.3); Total Protein 6.3 g/dl (6.3-8.2); eGFR > 60.00
[2023-08-31 13:42] LABS: Intact PTH 17.7 pg/ml (13.6-85.8)
== END ==
LOC: RCS 10:23
PROVIDERS: ATTENDING PHYSICIAN Internal Medicine Cardiovascular Disease; FAMILY PHYSICIAN Internal Medicine; REFERRING PHYSICIAN Specialist
DX: R53.83 Other fatigue (principal); I48.0 Paroxysmal atrial fibrillation; R00.2 Palpitations; E83.52 Hypercalcemia
CPT/HCPCS: 36415; 80053; 82164; 82330; 82652; 83521; 83970; 84100; 84155; 84156; 84165; 86335; 93225; 93226

== ENCOUNTER → 2023-09-25 14:25 | Outpatient (REF) | payer MEDICARE, OTHER, SELFPAY ==
[2023-09-25 15:12] LABS: % Basophils 0.4 % (0-2); % Eosinophils 0.5 % (0-6); % Immature Granulocytes 1.1 % (0-0.5); % Lymphocytes 13.3 % (20.5-51.1); % Monocytes 4.7 % (1.7-9.3); Absolute Immature Granulocytes 0.1 10^3/uL (0-0.05); Absolute Lymphocytes 1.1 10^3/uL (1.2-3.4); Absolute Monocytes 0.4 10^3/uL (0.1-0.6); Absolute Neutrophils 6.6 10^3/uL (1.4-6.5); Hematocrit 41.7 % (37.0-47.0); Hemoglobin 14.6 g/dL (12.0-16.0); Mean Corpuscular Hgb 31.5 pg (27.0-31.0); Mean Corpuscular Volume 90.1 fL (81.0-99.0); Mean Platelet Volume 9.9 fL (7.4-10.4); Nucleated Red Blood Cells % 0 %; Platelet Count 254 10^3/uL (130-400); Red Blood Cell Count 4.63 10^6/uL (4.20-5.40); Red Cell Dist. Width 12.2 % (11.5-14.5); White Blood Cell Count 8.2 10^3/uL (4.8-10.8)
[2023-09-25 15:42] LABS: Erythrocyte Sed Rate 12 mm/hour (0-20)
[2023-09-25 16:23] LABS: ALT (SGPT) 22 U/L (0-35); AST (SGOT) 28 U/L (14-36); Albumin 4.6 g/dl (3.5-5.0); Alkaline Phosphatase 107 U/L (38-126); Blood Urea Nitrogen 30 mg/dl (7-17); Calcium 10.1 mg/dl (8.4-10.2); Carbon Dioxide 24 mmol/L (22-30); Chloride 98 mmol/L (98-107); Glucose 122 mg/dl (70-99); Potassium 4.3 mmol/L (3.5-5.1); Sodium 130 mmol/L (135-145); Total Bilirubin 0.9 mg/dl (0.2-1.3); Total Protein 7.1 g/dl (6.3-8.2); eGFR 57.31
[2023-09-25 16:53] LABS: C-Reactive Protein < 5.00 mg/L (0.0-10.00)
[2023-09-25 16:59] LABS: Free T4 1.74 ng/dl (0.78-2.19)
[2023-09-25 17:13] LABS: TSH 1.53 uIU/ml (0.47-4.68); TSH Reflex To Free T4 1.53 uIU/ml (0.47-4.68)
[2023-09-28 09:32] LABS: CCP Antibody IgG/IgA 3 Units (0-19)
== END ==
LOC: REG 14:25
PROVIDERS: ATTENDING PHYSICIAN Internal Medicine Rheumatology; FAMILY PHYSICIAN Internal Medicine; OTHER PHYSICIAN Specialist; REFERRING PHYSICIAN Nurse Practitioner Family
DX: I89.0 Lymphedema, not elsewhere classified (principal); M35.3 Polymyalgia rheumatica; I10 Essential (primary) hypertension; E03.9 Hypothyroidism, unspecified; Z86.79 Personal history of other diseases of the circulatory system
CPT/HCPCS: 36415; 80053; 82088; 82384; 84244; 84439; 84443; 85025; 85652; 86140; 86200; 86430

== ENCOUNTER → 2023-12-27 10:50 | Outpatient (REF) | payer MEDICARE, OTHER, SELFPAY ==
[2023-12-27 12:08] LABS: Osmolality Urine 701 mOsm/kg (300-900)
[2023-12-27 12:40] LABS: Blood Urea Nitrogen 19 mg/dl (7-17); Calcium 9.6 mg/dl (8.4-10.2); Carbon Dioxide 22 mmol/L (22-30); Chloride 100 mmol/L (98-107); Glucose 82 mg/dl (70-99); Potassium 4.3 mmol/L (3.5-5.1); Sodium 134 mmol/L (135-145); Uric Acid 4.2 mg/dl (2.5-6.2); eGFR > 60.00
[2023-12-27 13:06] LABS: TSH Reflex To Free T4 2.56 uIU/ml (0.47-4.68)
== END ==
LOC: REG 10:50
PROVIDERS: ATTENDING PHYSICIAN Nurse Practitioner Family; FAMILY PHYSICIAN Specialist
DX: E03.9 Hypothyroidism, unspecified (principal); E87.1 Hypo-osmolality and hyponatremia
CPT/HCPCS: 36415; 80048; 83935; 84443; 84550

== ENCOUNTER → 2024-02-22 12:37 | Outpatient (REF) | payer MEDICARE, OTHER, SELFPAY | LOC: RCS 12:37 | PROVIDERS: ATTENDING PHYSICIAN Nurse Practitioner; FAMILY PHYSICIAN Internal Medicine | DX: I34.0 Nonrheumatic mitral (valve) insufficiency (principal) | CPT/HCPCS: 93306 ==

== ENCOUNTER → 2024-03-01 11:58 | Outpatient (REF) | payer MEDICARE, OTHER, SELFPAY | LOC: MRI 3T 11:58 | PROVIDERS: ATTENDING PHYSICIAN Neurological Surgery; FAMILY PHYSICIAN Internal Medicine | DX: D33.3 Benign neoplasm of cranial nerves (principal) | CPT/HCPCS: 70553; A9575 ==

== ENCOUNTER → 2024-05-04 10:59 | Outpatient (REF) | payer MEDICARE, OTHER, SELFPAY ==
[2024-05-04 12:21] LABS: % Basophils 0.6 % (0-2); % Eosinophils 1.6 % (0-6); % Immature Granulocytes 0.6 % (0-0.5); % Lymphocytes 21.6 % (20.5-51.1); % Monocytes 8.3 % (1.7-9.3); % Neutrophils 67.3 % (42.2-75.2); Absolute Eosinophils 0.1 10^3/uL (0-0.7); Absolute Lymphocytes 1.4 10^3/uL (1.2-3.4); Absolute Monocytes 0.5 10^3/uL (0.1-0.6); Absolute Neutrophils 4.3 10^3/uL (1.4-6.5); Hematocrit 41.6 % (37.0-47.0); Hemoglobin 14.2 g/dL (12.0-16.0); Mean Corp Hgb Conc. 34.1 g/dL (33.0-37.0); Mean Corpuscular Hgb 30.9 pg (27.0-31.0); Mean Corpuscular Volume 90.6 fL (81.0-99.0); Mean Platelet Volume 10.6 fL (7.4-10.4); Nucleated Red Blood Cells % 0 %; Platelet Count 207 10^3/uL (130-400); Red Blood Cell Count 4.59 10^6/uL (4.20-5.40); Red Cell Dist. Width 12.9 % (11.5-14.5); White Blood Cell Count 6.4 10^3/uL (4.8-10.8)
[2024-05-04 12:46] LABS: ALT (SGPT) 18 U/L (0-35); AST (SGOT) 24 U/L (14-36); Alkaline Phosphatase 72 U/L (38-126); Blood Urea Nitrogen 24 mg/dl (7-17); Calcium 9.8 mg/dl (8.4-10.2); Carbon Dioxide 30 mmol/L (22-30); Chloride 97 mmol/L (98-107); Glucose 99 mg/dl (70-99); HDL Cholesterol 96 mg/dl; LDL Cholesterol, Calculated 119 mg/dl; Potassium 3.6 mmol/L (3.5-5.1); Sodium 133 mmol/L (135-145); Total Bilirubin 1.1 mg/dl (0.2-1.3); Total Cholesterol 234 mg/dl (50-199); Total Protein 6.3 g/dl (6.3-8.2); Triglyceride 97 mg/dl (10-149); Very Low Density Lipoprotein 19 mg/dl (0-30); eGFR > 60.00
[2024-05-04 13:06] LABS: Free T4 2.59 ng/dl (0.78-2.19)
[2024-05-04 13:09] LABS: Urine Albumin 2+ (Neg - Trace); Urine Bilirubin Negative (Negative); Urine Character Clear (Clear); Urine Color Yellow; Urine Glucose Negative (Negative); Urine Ketone Negative (Negative); Urine Leukocyte 1+ (Negative); Urine Nitrite Negative (Negative); Urine Occult Blood Negative (Negative); Urine Specific Gravity 1.015 (<1.030); Urine Urobilinogen Negative (Neg - 1+)
[2024-05-04 13:20] LABS: TSH 0.32 uIU/ml (0.47-4.68)
[2024-05-04 13:25] LABS: Urine Bacteria Few (Negative); Urine Red Blood Cell 0-2 /HPF (0-2); Urine Squamous Cell 16-20 /LPF (Few)
[2024-05-04 13:39] LABS: Vitamin B12 585 pg/ml (239-931)
== END ==
LOC: REG 10:59
PROVIDERS: ATTENDING PHYSICIAN Nurse Practitioner Family
DX: F32.A Depression, unspecified (principal); F13.20 Sedative, hypnotic or anxiolytic dependence, uncomplicated; I48.0 Paroxysmal atrial fibrillation; D33.3 Benign neoplasm of cranial nerves; N18.30 Chronic kidney disease, stage 3 unspecified; E66.9 Obesity, unspecified; R53.82 Chronic fatigue, unspecified; Z01.89 Encounter for other specified special examinations; Z79.899 Other long term (current) drug therapy
CPT/HCPCS: 36415; 80053; 80061; 81003; 81015; 82607; 84439; 84443; 85025; 87086

== ENCOUNTER → 2024-05-24 07:41 | Outpatient (REF) | payer MEDICARE, OTHER, SELFPAY | LOC: RAD 07:41 | PROVIDERS: ATTENDING PHYSICIAN Internal Medicine Gastroenterology; FAMILY PHYSICIAN Internal Medicine; REFERRING PHYSICIAN Specialist | DX: R19.8 Other specified symptoms and signs involving the digestive system and abdomen (principal); K21.9 Gastro-esophageal reflux disease without esophagitis | CPT/HCPCS: 74221; 76700 ==

== ENCOUNTER → 2024-05-31 13:36 | Outpatient (REF) | payer MEDICARE, OTHER, SELFPAY | LOC: WDC 13:36 | PROVIDERS: ATTENDING PHYSICIAN Internal Medicine | DX: Z12.31 Encounter for screening mammogram for malignant neoplasm of breast (principal) | CPT/HCPCS: 77063; 77067 ==

== ENCOUNTER → 2024-06-21 13:11 | Outpatient (REF) | payer MEDICARE, OTHER, SELFPAY ==
[2024-06-21 15:01] LABS: Free T4 1.99 ng/dl (0.78-2.19)
[2024-06-21 15:15] LABS: TSH < 0.02 uIU/ml (0.47-4.68)
== END ==
LOC: REG 13:11
PROVIDERS: ATTENDING PHYSICIAN Nurse Practitioner Family
DX: E03.9 Hypothyroidism, unspecified (principal)
CPT/HCPCS: 36415; 84439; 84443

== ENCOUNTER → 2024-08-01 08:48 | Outpatient (REF) | payer MEDICARE, OTHER, SELFPAY ==
[2024-08-01 12:02] LABS: Free T3 3.25 pg/ml (2.77-5.27); Free T4 2.06 ng/dl (0.78-2.19)
[2024-08-01 12:15] LABS: TSH 0.02 uIU/ml (0.47-4.68)
[2024-08-02 21:39] LABS: Thyroglobulin <0.1 ng/mL (1.3-31.8); Thyroglobulin Antibodies <1.5 IU/mL (0.0-4.0)
== END ==
LOC: RAD 08:48
PROVIDERS: FAMILY PHYSICIAN Nurse Practitioner Family
DX: I73.9 Peripheral vascular disease, unspecified (principal); E03.9 Hypothyroidism, unspecified; Z85.850 Personal history of malignant neoplasm of thyroid
CPT/HCPCS: 36415; 84432; 84439; 84443; 84481; 86376; 86800; 93922; 93925

== ENCOUNTER 2024-08-06 11:31 | Emergency (ER) | payer MEDICARE, OTHER, SELFPAY ==
[2024-08-06 11:39] VITALS: BP 184/82
--- NOTE | 2024-08-06 12:14 | ED.GENMED ---
History of Present Illness
General
Chief Complaint: Chest Pain
Source: patient
Time Seen by Provider: 08/06/24 11:48
History of Present Illness
History of Present Illness:
Note:
CHIEF COMPLAINT(S)
Chest pain.
HISTORY OF PRESENT ILLNESS
The patient is an 79-year-old female presenting with chest pain that began suddenly while she was sitting, describing the sensation as sharp across her chest. The pain was initially localized but then moved to the other side of her chest. The
patient finds it painful to breathe deeply, move, or even touch the chest area. The patient noted a very slight cough that exacerbates the pain. She does not report any fever.
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 In terms of risk, the patient has had a previous pulmonary
embolism (PE) but denies any current leg or calf swelling. Additionally, she acknowledges having a high blood pressure reading recently.
The patient expresses concern about the potential for a new clot, given her medical history.
CHRONIC MEDICAL CONDITIONS SIGNIFICANTLY AFFECTING CARE
- MTHFR deficiency
- History of pulmonary embolism
REVIEW OF SYSTEMS
- Respiratory: Painful respiration, slight cough.
- Cardiovascular: Chest pain, no current leg or calf swelling noted, recent episode of high blood pressure.
- Constitutional: No fever reported.
PLAN
Conduct imaging tests such as a computed tomography scan to evaluate for potential clot, dissection, or pneumonia.
Check cardiac enzymes to rule out cardiac involvement.
Consider increasing prednisone dosage temporarily to manage possible inflammation of the pleura.
Monitor and manage the patients high blood pressure as a concomitant factor.
DIFFERENTIAL DIAGNOSIS
The Differential Diagnosis includes, in no particular order and is not limited to:
1. Pulmonary embolism
2. Musculoskeletal chest pain
3. Costochondritis
4. Pleural effusion
5. Pericarditis
6. Myocardial ischemia or infarction
7. Pneumonia
8. Aortic dissection
9. Pleuritis
10. Gastroesophageal reflux disease
Past History
Past History
ED Past Medical History: Arrthythmia, HTN, Hypercholesterolemia, Valvular disease, Other (VTE, Jean-Claude blee and left prox humerus fx 04/2020), Other (Embolus, mild valvular heart disease, arthritis) and Other (Mild mitral regurgitation, thyroid cancer
is status post thyroidectomy, hypertension, IBS, GERD, hypercoagulable state); Negative CAD
ED Past Surgical History: Other (thyroid)
Social History
Tobacco: Non-smoker
Alcohol: Former
Drug: None
Employment: Retired
Family History
Family History: Other (Her daughter had a pulmonary and was on control there's also atrial fibrillation multi-infarct dementia and her family)
Phy Exam
Physical Exam
Physical Exam:
General: Well-appearing female no acute respiratory distress
HEENT: Normocephalic atraumatic
Heart: Regular rate and rhythm lungs: Clear no wheeze
Abdomen is soft nontender
Extremities: No cyanosis
Musculoskeletal exam: The patient is tender to the touch over the chest wall
Scores
Heart Score for Chest Pain Patients
STEMI patient?: No
History: Slightly or Non-Suspicious
ECG: Normal
Age: >/= 65 years
Risk Factors: 1 or 2 Risk Factors
Troponin: </= Normal Limit
Heart Score for Chest Pain Patients: 3
Heart Score Risk: 2.5% MACE over next 6 weeks
Course
Orders/Labs/Results
Orders:
Orders
08/06/24 11:32
Electrocardiogram (*1) Urgent
Reason for Study: Chest Pain
EKG- Treatment ONCE
08/06/24 12:13
CT Chest PE Study Urgent
Comment:
Reason For Exam: pleuritic chest pain
08/06/24 12:15
Complete Blood Count/With Diff Urgent
Troponin I Urgent
08/06/24 13:03
Comprehensive Metabolic Panel Urgent
08/06/24 14:34
Hydrocodone 5/APAP 325 [[place] 5/325] 1 tablet PO NOW STA
Abnormal Lab Results
08/06/24 08/06/24
12:15 13:03
Lymphocytes % 16.5 L %
(20.5-51.1)
Glucose 120 H mg/dl
(70-99)
Total Protein 6.2 L g/dl
(6.3-8.2)
08/06/24 12:15
08/06/24 13:03
Vital Signs
Initial and Last Documented VS:
Initial Vital Signs
Temp Pulse Resp BP Pulse Ox
97.7 F 65 17 184/82 99
08/06/24 11:39 08/06/24 11:39 08/06/24 11:39 08/06/24 11:39 08/06/24 11:39
Last Documented Vital Signs
Temp Pulse Resp BP Pulse Ox
97.7 F 70 17 157/64 99
08/06/24 11:39 08/06/24 14:24 08/06/24 14:24 08/06/24 14:24 08/06/24 14:24
*Pulse Oximetry
Patient hypoxic: no
Comment: 99%
*Critical Care Note
Total Time (30-74mins, 75-104mins- exclusive of procedures): Not Applicable
Update Note
Update Note:
PE study negative troponin undetectable. Patient's pain is made worse with motion breathing and touch. Suspect chest wall pain/coarsely or costochondritis. She cannot do NSAIDs secondary to the Eliquis. Will recommend a course of prednisone and
her pain medicine as she usually would take. Stable for discharge
ED Attending Note
-
Portions of this chart may have been created with voice recognition software.� Occasional wrong word or��sound alike� substitutions may have occurred due to the inherent limitations of voice recognition software.
Discharge Plan
Departure
Patient Disposition: Home (Routine Discharge)
Date of Disposition: 08/06/24
Time of Disposition: 14:36
Patient with high blood pressure during this ER visit?: No
Discharge Problem:
Chest wall pain
Instructions: Chest Pain PCP Follow Up
Prescriptions:
New
prednisone 20 mg tablet
40 mg PO DAILY 5 Days Qty: 10 0RF
No Action
vitamin B complex 1 TAB tablet
1 tab PO DAILY
lorazepam 1 MG tablet
1 mg PO HS
Patient Comments:
06/28/2023: last filled 06/10/23, 90 tabs for 30 days from [facility]#[id number]
Nyquil
1 dose PO HS
acetaminophen [Tylenol Extra Strength] 500 MG tablet
500 mg PO DAILY
magnesium 200 MG tablet
400 mg PO HS
biotin 5,000 mcg Tablet,Chewable
5,000 mcg PO DAILY Qty: 0
bisacodyl [Dulcolax (bisacodyl)] 5 mg Tablet,Delayed Release (Dr/Ec)
5 mg PO HS
propranolol 20 mg Tablet
20 mg PO DAILY PRN (Reason: chest pain/tachycardia)
Eliquis 5 mg tablet
5 mg PO BID
levothyroxine 100 mcg Tablet
100 mcg PO DAILY @ 0600 30 Days Qty: 30 0RF
Referrals:
Riley Omer DO [Family Provider, Internal Medicine]
Activity Restrictions/Additional Instructions:
Use prednisone as directed. Use your pain medicine as needed. Return if worse otherwise follow-up with your doctor
Interventions
Interventions:
*Risk Screen - Suicide Last Done: 08/06/24 11:44
*General Assessment Last Done: 08/06/24 11:44
*Neglect/Abuse Screening Last Done: 08/06/24 11:44
*ED COVID-19 Vaccine History Last Done: 08/06/24 11:44
ED- Cardiac Assessment Last Done: 08/06/24 12:22
Discharge Date and Time
Print Language: GUAMANIAN
[2024-08-06 12:23] LABS: % Basophils 0.5 % (0-2); % Immature Granulocytes 0.5 % (0-0.5); % Lymphocytes 16.5 % (20.5-51.1); % Monocytes 7.2 % (1.7-9.3); % Neutrophils 74.3 % (42.2-75.2); Absolute Eosinophils 0.1 10^3/uL (0-0.7); Absolute Lymphocytes 1.3 10^3/uL (1.2-3.4); Absolute Monocytes 0.6 10^3/uL (0.1-0.6); Absolute Neutrophils 5.8 10^3/uL (1.4-6.5); Hematocrit 39.7 % (37.0-47.0); Hemoglobin 13.8 g/dL (12.0-16.0); Mean Corp Hgb Conc. 34.8 g/dL (33.0-37.0); Mean Corpuscular Hgb 30.7 pg (27.0-31.0); Mean Corpuscular Volume 88.2 fL (81.0-99.0); Mean Platelet Volume 9.6 fL (7.4-10.4); Nucleated Red Blood Cells % 0 %; Platelet Count 194 10^3/uL (130-400); Red Cell Dist. Width 13.2 % (11.5-14.5); White Blood Cell Count 7.8 10^3/uL (4.8-10.8)
[2024-08-06 12:50] LABS: Troponin I < 0.012 ng/ml
[2024-08-06 13:04] VITALS: BP 126/55
[2024-08-06 13:31] LABS: ALT (SGPT) 18 U/L (0-35); AST (SGOT) 21 U/L (14-36); Alkaline Phosphatase 66 U/L (38-126); Blood Urea Nitrogen 16 mg/dl (7-17); Calcium 9.5 mg/dl (8.4-10.2); Carbon Dioxide 26 mmol/L (22-30); Chloride 105 mmol/L (98-107); Glucose 120 mg/dl (70-99); Potassium 3.8 mmol/L (3.5-5.1); Sodium 136 mmol/L (135-145); Total Bilirubin 1.2 mg/dl (0.2-1.3); Total Protein 6.2 g/dl (6.3-8.2); eGFR > 60.00
[2024-08-06 14:24] VITALS: BP 157/64
[2024-08-06] MEDS: NORCO 5/325 1 TABLET PO (14:38)
== END 2024-08-06 14:58 | disposition home or self-care (01) ==
LOC: EMR 11:31
PROVIDERS: Physician Assistant; EMERGENCY PHYSICIAN Emergency Medicine; FAMILY PHYSICIAN Internal Medicine
DX: R07.89 Other chest pain (principal); E72.12 Methylenetetrahydrofolate reductase deficiency; E78.00 Pure hypercholesterolemia, unspecified; I10 Essential (primary) hypertension; Z85.850 Personal history of malignant neoplasm of thyroid; Z86.711 Personal history of pulmonary embolism; E89.0 Postprocedural hypothyroidism
CPT/HCPCS: 99284; 71275; 80053; 84484; 85025; 93005; Q9967

== ENCOUNTER → 2024-08-27 14:51 | Outpatient (REF) | payer MEDICARE, OTHER, SELFPAY | LOC: RAD 14:51 | PROVIDERS: ATTENDING PHYSICIAN Nurse Practitioner Family; FAMILY PHYSICIAN Internal Medicine | DX: Z85.850 Personal history of malignant neoplasm of thyroid (principal) | CPT/HCPCS: 76536 ==

== ENCOUNTER → 2024-12-11 14:32 | Outpatient (REF) | payer MEDICARE, OTHER, SELFPAY | LOC: PAVMRI 14:32 | PROVIDERS: ATTENDING PHYSICIAN Physician Assistant; FAMILY PHYSICIAN Internal Medicine | DX: M35.3 Polymyalgia rheumatica (principal); M54.50 Low back pain, unspecified | CPT/HCPCS: 72148 ==

== ENCOUNTER 2025-01-11 00:43 | Emergency (ER) | payer MEDICARE, OTHER, SELFPAY ==
[2025-01-11 00:46] VITALS: BP 143/69
[2025-01-11 00:49] VITALS: BP 143/69
[2025-01-11 01:00] VITALS: BP 120/70
[2025-01-11 01:14] LABS: Hematocrit 40.5 % (37.0-47.0); Hemoglobin 14.1 g/dL (12.0-16.0); Mean Corp Hgb Conc. 34.8 g/dL (33.0-37.0); Mean Corpuscular Volume 87.9 fL (81.0-99.0); Nucleated Red Blood Cells % 0 %; Platelet Count 209 10^3/uL (130-400); Red Cell Dist. Width 13.0 % (11.5-14.5)
--- NOTE | 2025-01-11 01:25 | ED.GENMED ---
History of Present Illness
<Leslie Noble MD - Last Filed: 01/11/25 02:20>
General
Chief Complaint: Chest Pain
Time Seen by Provider: 01/11/25 01:15
History of Present Illness
History of Present Illness:
Patient is a 80-year-old woman with history of atrial fibrillation on propranolol as well as Eliquis, hyperlipidemia, hypertension, hypothyroidism presenting to the emergency department palpitations as well as chest pain. Patient states at 11:30 PM
she was sitting reading a book when she developed palpitations. She then developed chest pain that was pressure that was in the center of her chest. It did not radiate. She did not become diaphoretic or nauseous. She took 2 extra doses of her
propranolol. Waited about an hour and symptoms did not improve so she called 911. Since she has been here patient states that all her symptoms have resolved. She has been compliant with her blood thinners. No shortness of breath or hemoptysis.
Baseline leg swelling.
Past History
<Leslie Noble MD - Last Filed: 01/11/25 02:20>
Past History
ED Past Medical History: Arrthythmia, HTN, Hypercholesterolemia, Valvular disease, Other (VTE, Jean-Claude blee and left prox humerus fx 04/2020), Other (Embolus, mild valvular heart disease, arthritis) and Other (Mild mitral regurgitation, thyroid cancer
is status post thyroidectomy, hypertension, IBS, GERD, hypercoagulable state); Negative CAD
ED Past Surgical History: Other (thyroid)
Social History
Tobacco: Non-smoker
Alcohol: Former
Drug: None
Employment: Retired
Family History
Family History: Other (Her daughter had a pulmonary and was on control there's also atrial fibrillation multi-infarct dementia and her family)
Phy Exam
<Leslie Noble MD - Last Filed: 01/11/25 02:20>
Physical Exam
Physical Exam:
GENERAL: in no acute distress
HEENT: normocephalic, extraocular movements intact, moist oral mucosa
NECK: normal inspection
RESPIRATORY: no respiratory distress, clear to auscultation bilaterally
CARDIOVASCULAR: regular rate and rhythm
ABDOMEN/: soft, non-distended, non-tender to palpation, no rebound or guarding
EXTREMITIES: non-tender, no edema/swelling
NEUROLOGIC: awake and alert, moves all extremities
SKIN: warm
Scores
<Marion Fox MD - Last Filed: 01/12/25 17:30>
Heart Score for Chest Pain Patients
Heart Score for Chest Pain Patients: 5
Heart Score Risk: 20.3% MACE over next 6 weeks
<Barry Jade DO - Last Filed: 01/11/25 14:37>
Heart Score for Chest Pain Patients
STEMI patient?: No
History: Slightly or Non-Suspicious
ECG: Nonspecific Repolarization
Age: >/= 65 years
Risk Factors: 1 or 2 Risk Factors
Troponin: >1 - <3 x Normal Limit
Heart Score for Chest Pain Patients: 5
Heart Score Risk: 20.3% MACE over next 6 weeks
Course
<Leslie Noble MD - Last Filed: 01/11/25 02:20>
Orders/Labs/Results
Orders:
Orders
01/11/25 00:52
Electrocardiogram (*1) Urgent
Reason for Study: Chest Pain
Cardiac Monitoring- Treatment ONCE
EKG- Treatment ONCE
IV Insert/Care/Rem.- Treatment PRN
Pulse Ox/spot Check [RESP] Urgent
Quantity: 1
Special Instructions: ON ROOM AIR
01/11/25 00:54
Complete Blood Count/With Diff Urgent
Comprehensive Metabolic Panel Urgent
Troponin I Urgent
01/11/25 01:23
EKG- Treatment ONCE
01/11/25 03:48
Troponin I Urgent
01/11/25 07:10
Troponin I Urgent
Abnormal Lab Results
01/11/25 01/11/25
00:54 07:10
Abs Immat Gran (auto) 0.1 H 10^3/uL
(0-0.05)
Immature Gran % 0.9 H %
(0-0.5)
Sodium 133 L mmol/L
(135-145)
BUN 28 H mg/dl
(7-17)
Creatinine 1.2 H mg/dL
(0.6-1.0)
Glucose 109 H mg/dl
(70-99)
Troponin I 0.045 H* D ng/ml
01/11/25 00:54
01/11/25 00:54
Vital Signs
Initial and Last Documented VS:
Initial Vital Signs
Temp Pulse Resp BP
98.3 F 82 20 143/69
01/11/25 00:46 01/11/25 00:46 01/11/25 00:46 01/11/25 00:46
Last Documented Vital Signs
Temp Pulse Resp BP Pulse Ox
98.3 F 65 15 117/65 98
01/11/25 00:46 01/11/25 09:00 01/11/25 09:00 01/11/25 02:00 01/11/25 08:30
<Marion Fox MD - Last Filed: 01/12/25 17:30>
Orders/Labs/Results
Orders:
Orders
01/11/25 00:52
Electrocardiogram (*1) Urgent
Reason for Study: Chest Pain
Cardiac Monitoring- Treatment ONCE
EKG- Treatment ONCE
IV Insert/Care/Rem.- Treatment PRN
Pulse Ox/spot Check [RESP] Urgent
Quantity: 1
Special Instructions: ON ROOM AIR
01/11/25 00:54
Complete Blood Count/With Diff Urgent
Comprehensive Metabolic Panel Urgent
Troponin I Urgent
01/11/25 01:23
EKG- Treatment ONCE
01/11/25 03:48
Troponin I Urgent
01/11/25 07:10
Troponin I Urgent
Abnormal Lab Results
01/11/25 01/11/25
00:54 07:10
Abs Immat Gran (auto) 0.1 H 10^3/uL
(0-0.05)
Immature Gran % 0.9 H %
(0-0.5)
Sodium 133 L mmol/L
(135-145)
BUN 28 H mg/dl
(7-17)
Creatinine 1.2 H mg/dL
(0.6-1.0)
Glucose 109 H mg/dl
(70-99)
Troponin I 0.045 H* D ng/ml
01/11/25 00:54
01/11/25 00:54
Vital Signs
Initial and Last Documented VS:
Initial Vital Signs
Temp Pulse Resp BP
98.3 F 82 20 143/69
01/11/25 00:46 01/11/25 00:46 01/11/25 00:46 01/11/25 00:46
Last Documented Vital Signs
Temp Pulse Resp BP Pulse Ox
98.3 F 65 15 117/65 98
01/11/25 00:46 01/11/25 09:00 01/11/25 09:00 01/11/25 02:00 01/11/25 08:30
Arnellt;Barry Jade DO - Last Filed: 01/11/25 14:37>
Orders/Labs/Results
Orders:
Orders
01/11/25 00:52
Electrocardiogram (*1) Urgent
Reason for Study: Chest Pain
Cardiac Monitoring- Treatment ONCE
EKG- Treatment ONCE
IV Insert/Care/Rem.- Treatment PRN
Pulse Ox/spot Check [RESP] Urgent
Quantity: 1
Special Instructions: ON ROOM AIR
01/11/25 00:54
Complete Blood Count/With Diff Urgent
Comprehensive Metabolic Panel Urgent
Troponin I Urgent
01/11/25 01:23
EKG- Treatment ONCE
01/11/25 03:48
Troponin I Urgent
01/11/25 07:10
Troponin I Urgent
Abnormal Lab Results
01/11/25 01/11/25
00:54 07:10
Abs Immat Gran (auto) 0.1 H 10^3/uL
(0-0.05)
Immature Gran % 0.9 H %
(0-0.5)
Sodium 133 L mmol/L
(135-145)
BUN 28 H mg/dl
(7-17)
Creatinine 1.2 H mg/dL
(0.6-1.0)
Glucose 109 H mg/dl
(70-99)
Troponin I 0.045 H* D ng/ml
01/11/25 00:54
01/11/25 00:54
Vital Signs
Initial and Last Documented VS:
Initial Vital Signs
Temp Pulse Resp BP
98.3 F 82 20 143/69
01/11/25 00:46 01/11/25 00:46 01/11/25 00:46 01/11/25 00:46
Last Documented Vital Signs
Temp Pulse Resp BP Pulse Ox
98.3 F 65 15 117/65 98
01/11/25 00:46 01/11/25 09:00 01/11/25 09:00 01/11/25 02:00 01/11/25 08:30
<Leslie Noble MD - Last Filed: 01/11/25 02:20>
MDM/Problems Addressed
Differential Diagnosis Includes:
Patient is a 80-year-old woman with history of atrial fibrillation on propranolol and Eliquis presenting to the emergency department palpitations as well as chest pain. On arrival patient's heart rate was initially tachycardic during my evaluation.
My interpretation of the monitor she is in normal sinus rhythm in the 80s. Exam is otherwise reassuring. Concern for paroxysmal atrial fibrillation versus other cardiac arrhythmia versus electrolyte derangement. Will check blood work EKG. I did
review the EMS rhythm strip and does appear that she was in atrial tachycardia. Per chart review it appears that last time patient was in atrial fibrillation she did have a slight troponin spill. She did have a catheterization done which was
unremarkable.
<Leslie Noble MD - Last Filed: 01/11/25 02:20>
*Pulse Oximetry
SaO2: 96
<Barry Jade DO - Last Filed: 01/11/25 14:37>
*Pulse Oximetry
Patient hypoxic: no
*Critical Care Note
Total Time (30-74mins, 75-104mins- exclusive of procedures): Not Applicable
<Leslie Noble MD - Last Filed: 01/11/25 02:20>
Update Note
Update Note:
On reevaluation patient remains resting comfortably. Troponin is negative. Creatinine is slightly elevated from patient's baseline. Patient will have repeat blood work to make sure the creatinine improves
Patient signed out to oncoming attending. If delta troponin is normal will discharge.
<Marion Fox MD - Last Filed: 01/12/25 17:30>
Update Note
Update Note:
On reevaluation patient remains resting comfortably. Troponin is negative. Creatinine is slightly elevated from patient's baseline. Patient will have repeat blood work to make sure the creatinine improves
Patient signed out to oncoming attending. If delta troponin is normal will discharge.
520AM Pt resting comfortably, eager to go home, no sxs. Hr 60's. She states that in past when she gets episodes of tachycardia, she can also get assoc cp. No cp now. Last cath approx one yaer ago and 'clean' as per pt. Advised re:troponin change
and recommendation for further eval/observation...she declines at this time, but does agree to repeat troponin in 3 hrs and reassessment of plan.
<Barry Jade DO - Last Filed: 01/11/25 14:37>
Update Note
Update Note:
On reevaluation patient remains resting comfortably. Troponin is negative. Creatinine is slightly elevated from patient's baseline. Patient will have repeat blood work to make sure the creatinine improves
Patient signed out to oncoming attending. If delta troponin is normal will discharge.
520AM Pt resting comfortably, eager to go home, no sxs. Hr 60's. She states that in past when she gets episodes of tachycardia, she can also get assoc cp. No cp now. Last cath approx one yaer ago and 'clean' as per pt. Advised re:troponin change
and recommendation for further eval/observation...she declines at this time, but does agree to repeat troponin in 3 hrs and reassessment of plan.
0819: Third troponin mildly elevated 0.045. Reviewed cath report from March 03, 2023 which documented normal coronary arteries. Patient is asymptomatic at this time. Given her normal cath I suspect this minimal bump in troponins is rate
related. Communicated with Dr. Ribeiro and who agrees with my plan to discharge the patient and follow-up with them in the office.
ED Attending Note
<Leslie Noble MD - Last Filed: 01/11/25 02:20>
-
Portions of this chart may have been created with voice recognition software.� Occasional wrong word or��sound alike� substitutions may have occurred due to the inherent limitations of voice recognition software.
Discharge Plan
Departure
Patient Disposition: Home (Routine Discharge)
Date of Disposition: 01/11/25
Time of Disposition: 08:21
Patient with high blood pressure during this ER visit?: No
Condition: Good
Discharge Problem:
Palpitations, Tachycardia, Chest pain
Instructions: Chest Pain CBC Follow Up, Heart Palpitations
Prescriptions:
No Action
vitamin B complex 1 TAB tablet
1 tab PO DAILY
lorazepam 1 MG tablet
1 mg PO HS
Patient Comments:
06/28/2023: last filled 06/10/23, 90 tabs for 30 days from [facility]#[id number]
Nyquil
1 dose PO HS
acetaminophen [Tylenol Extra Strength] 500 MG tablet
500 mg PO DAILY
magnesium 200 MG tablet
400 mg PO HS
biotin 5,000 mcg Tablet,Chewable
5,000 mcg PO DAILY Qty: 0
bisacodyl [Dulcolax (bisacodyl)] 5 mg Tablet,Delayed Release (Dr/Ec)
5 mg PO HS
propranolol 20 mg Tablet
20 mg PO DAILY PRN (Reason: chest pain/tachycardia)
Eliquis 5 mg tablet
5 mg PO BID
levothyroxine 100 mcg Tablet
100 mcg PO DAILY @ 0600 30 Days Qty: 30 0RF
prednisone 20 mg tablet
40 mg PO DAILY 5 Days Qty: 10 0RF
Referrals:
Riley Omer DO [Family Provider, Internal Medicine]
Activity Restrictions/Additional Instructions:
Thank You for choosing [facility].
You were seen in the Emergency Department today for palpitations and chest pain. While you were here we performed blood work, which was reassuring. Please make sure you have your kidney function reevaluated next week as it was slightly elevated.
We would like for you to follow up with your primary care physician for further evaluation. If you experience fever, worsening of your symptoms, or develop any other new or concerning symptoms, please return to the Emergency Department immediately.
Please see the attached sheet for additional information.
Interventions
Interventions:
*Risk Screen - Suicide Last Done: 01/11/25 00:46
*General Assessment Last Done: 01/11/25 00:46
*Neglect/Abuse Screening Last Done: 01/11/25 00:46
*ED- Fall Risk Assessment Last Done: 01/11/25 00:46
*ED COVID-19 Vaccine History Last Done: 01/11/25 00:46
*ED Influenza Vaccine History Last Done: 01/11/25 00:46
*Nursing Disposition Last Done: 01/11/25 09:20
ED- Cardiac Assessment Last Done: 01/11/25 01:14
Discharge Date and Time
Discharge Date/Time: 01/11/25 10:15
Print Language: LITHUANIAN
[2025-01-11 01:29] LABS: ALT (SGPT) 25 U/L (0-35); AST (SGOT) 24 U/L (14-36); Albumin 4.2 g/dl (3.5-5.0); Alkaline Phosphatase 80 U/L (38-126); Blood Urea Nitrogen 28 mg/dl (7-17); Calcium 9.6 mg/dl (8.4-10.2); Carbon Dioxide 26 mmol/L (22-30); Chloride 101 mmol/L (98-107); Estimated Creatinine Clearance 38 ml/min; Glucose 109 mg/dl (70-99); Potassium 3.5 mmol/L (3.5-5.1); Sodium 133 mmol/L (135-145); Total Protein 6.9 g/dl (6.3-8.2); eGFR 45.48
[2025-01-11 01:44] LABS: Troponin I < 0.012 ng/ml
[2025-01-11 02:00] VITALS: BP 117/65
[2025-01-11 04:28] LABS: Troponin I 0.031 ng/ml
[2025-01-11 07:49] LABS: Troponin I 0.045 ng/ml
== END 2025-01-11 10:15 | disposition home or self-care (01) ==
LOC: EMR 00:43
PROVIDERS: Emergency Medicine; EMERGENCY PHYSICIAN Student in an Organized Health Care Education/Training Program; FAMILY PHYSICIAN Internal Medicine
DX: R00.2 Palpitations (principal); R00.0 Tachycardia, unspecified; R07.9 Chest pain, unspecified; I48.91 Unspecified atrial fibrillation; I10 Essential (primary) hypertension; I34.0 Nonrheumatic mitral (valve) insufficiency; E78.00 Pure hypercholesterolemia, unspecified; D68.59 Other primary thrombophilia; E89.0 Postprocedural hypothyroidism; K21.9 Gastro-esophageal reflux disease without esophagitis; K58.9 Irritable bowel syndrome, unspecified; M19.90 Unspecified osteoarthritis, unspecified site; Z79.01 Long term (current) use of anticoagulants; Z85.850 Personal history of malignant neoplasm of thyroid; Z82.49 Family history of ischemic heart disease and other diseases of the circulatory system
CPT/HCPCS: 99284; 80053; 84484; 85025; 93005

== ENCOUNTER → 2025-01-31 13:00 | Outpatient (REF) | payer MEDICARE, OTHER, SELFPAY ==
[2025-01-31 14:14] LABS: Hematocrit 36.7 % (37.0-47.0); Hemoglobin 12.5 g/dL (12.0-16.0); Mean Corp Hgb Conc. 34.1 g/dL (33.0-37.0); Mean Corpuscular Volume 88.9 fL (81.0-99.0); Nucleated Red Blood Cells % 0 %; Platelet Count 197 10^3/uL (130-400); Red Cell Dist. Width 13.3 % (11.5-14.5)
[2025-01-31 14:24] LABS: INR 1.29; PT 16.2 Sec (11.4-14.6)
[2025-01-31 14:25] LABS: APTT 31.6 Sec (23.4-35.0)
[2025-01-31 14:27] LABS: D-Dimer 0.69 ug/mlFEU (0.00-0.50)
[2025-01-31 14:48] LABS: ALT (SGPT) 24 U/L (0-35); AST (SGOT) 32 U/L (14-36); Albumin 4.4 g/dl (3.5-5.0); Alkaline Phosphatase 89 U/L (38-126); Blood Urea Nitrogen 21 mg/dl (7-17); Calcium 9.4 mg/dl (8.4-10.2); Carbon Dioxide 25 mmol/L (22-30); Chloride 97 mmol/L (98-107); Glucose 91 mg/dl (70-99); Potassium 4.1 mmol/L (3.5-5.1); Sodium 130 mmol/L (135-145); Total Protein 6.9 g/dl (6.3-8.2); eGFR > 60.00
[2025-01-31 14:50] LABS: C-Reactive Protein < 5.00 mg/L (0.0-10.00)
== END ==
LOC: REG 13:00
PROVIDERS: ATTENDING PHYSICIAN Internal Medicine Cardiovascular Disease; FAMILY PHYSICIAN Internal Medicine; OTHER PHYSICIAN Nurse Practitioner Family
DX: R07.2 Precordial pain (principal); R23.3 Spontaneous ecchymoses; D68.52 Prothrombin gene mutation
CPT/HCPCS: 36415; 80053; 85025; 85379; 85610; 85652; 85730; 86140

== ENCOUNTER → 2025-02-14 12:44 | Outpatient (REF) | payer MEDICARE, OTHER, SELFPAY ==
[2025-02-14 15:42] LABS: Albumin 4.1 g/dl (3.5-5.0); Blood Urea Nitrogen 20 mg/dl (7-17); Calcium 9.6 mg/dl (8.4-10.2); Carbon Dioxide 24 mmol/L (22-30); Glucose 90 mg/dl (70-99); Potassium 4.3 mmol/L (3.5-5.1); Sodium 134 mmol/L (135-145); eGFR > 60.00
[2025-02-14 15:49] LABS: Chloride 104 mmol/L (98-107)
== END ==
LOC: REG 12:44
PROVIDERS: ATTENDING PHYSICIAN Specialist; FAMILY PHYSICIAN Internal Medicine
DX: I10 Essential (primary) hypertension (principal); E89.0 Postprocedural hypothyroidism; E78.2 Mixed hyperlipidemia; E16.2 Hypoglycemia, unspecified; E03.9 Hypothyroidism, unspecified
CPT/HCPCS: 36415; 80069